=== PATIENT | female | born 1940 | race Caucasian/White ===

== ENCOUNTER 2018-08-20 15:41 | Inpatient (IN) | payer OTHER ==
--- NOTE | 2018-08-20 16:36 | RAD REPORT ---
EXAM DESCRIPTION: RAD - Chest Single View - 08/20/2018 4:30 pm CLINICAL HISTORY: SOB Chest pain. COMPARISON: No comparisons FINDINGS: Portable technique limits examination quality. Emphysematous changes are present throughout the lungs with several scattered granulomas present. The heart is normal in size. No displaced fractures.Aortic atherosclerosis. IMPRESSION: Prominent COPD.
[2018-08-20 16:42] LABS: Absolute Neutrophil 17.6 K/uL (1.8-8.0); Basophils % 0.2 % (0-1.3); Hematocrit 44.3 % (36.0-45.0); Lymphocytes % 9.5 % (15.3-44.8); MPV 14.2 fL (7.6-11.3)
--- NOTE | 2018-08-20 16:44 | RAD REPORT ---
EXAM DESCRIPTION: CT - Head Brain Wo Cont - 08/20/2018 4:35 pm CLINICAL HISTORY: AMS Headache, drowsiness COMPARISON: No comparisons TECHNIQUE: All CT scans are performed using dose optimization technique as appropriate and may inclu de automated exposure control or mA/KV adjustment according to patient size. FINDINGS: No intracranial hemorrhage, hydrocephalus or extra-axial fluid collection.Advanced general ized brain atrophy is present with advanced periventricular and deep white matter chronic microvascul ar ischemic changes.No areas of brain edema or evidence of midline shift. Extensive opacification of the visualized paranasal sinuses. The calvarium is intact. IMPRESSION: No acute intracranial abnormality. Extensive sinus disease is present.
[2018-08-20 16:45] LABS: Albumin 2.2 g/dL (3.4-5.0); Bilirubin Direct 0.1 mg/dL (0-0.2); Bilirubin Total 0.3 mg/dL (0.2-1.0); Potassium 3.3 mmol/L (3.5-5.1); Protein, Total 6.8 g/dL (6.4-8.2); Protime INR 1.16; Troponin (Emerg Dept Use Only) 0.02 ng/mL (0.0-0.045)
[2018-08-20] MEDS ORDERED: NA CHLORIDE 0.9% 500 ML ONE (17:40)
[2018-08-20 17:54] LABS: Platelet Estimate DECR; Platelets, Giant FEW PRESENT
[2018-08-20 17:55] LABS: Anisocytosis 1+; Blood Morphology Comment NOTED (NOT SEEN); Dohle Bodies PRESENT; Macrocytosis 1+; Toxic Granulation 1+
[2018-08-20 18:00] LABS: Potassium 3.5 mmol/L (3.5-5.1)
--- NOTE | 2018-08-20 18:17 | EDPHYS ---
Physician Documentation [facility] Name: Alanna Troy Age: 78 yrs Sex: Female : 1940 Arrival Date: 08/20/2018 Time: 15:51 Bed 3 Private MD: ED Physician Jorge Luis Guerra HPI: 08/21 19:43 This 78 yrs old Female presents to ER via EMS with complaints of Respiratory wa Distress. 19:43 The patient has shortness of breath at rest, that occurred at a group home or hi assisted living facility, and the patient has a history of COPD, dementia. non-verbal at baseline, EMS called to [place] for unresponsiveness. noted pt O2 sat 70% RA. 85% with NRBM. Given neb in routed with 96% O2 noted with neb. Pt non-verbal at base and unable to give history. Son at bedside, [id number], advises DNR. Will take evaluation and treatment but declines intubation and or cardiac resuscitative drugs. Onset: The symptoms/episode began/occurred today. Duration: The symptoms are continuous, and are steadily getting worse. The patient's shortness of breath has no apparent modifying factors. Associated signs and symptoms: The patient has no apparent associated signs or symptoms. Severity of symptoms: At their worst the symptoms were severe in the emergency department the symptoms have improved moderately. The patient has experienced similar episodes in the past, a few times. The patient has been recently seen by a physician: [place] doctor. as noted above. Historical: - Allergies: 08/20 16:24 No Known Allergies; ph - Home Meds: 16:24 hydroxyzine HCl 25 mg Oral tab 1 tab 4 times per day [Active]; memantine 10 mg oral tab ph 1 tab 2 times per day [Active]; Zoloft 100 mg Oral tab 1 tab once daily [Active]; - PMHx: 16:24 Dementia; Depression; Anxiety; UTI; ph - Immunization history:: Adult Immunizations up to date. - Social history:: Smoking status: Patient/guardian denies using tobacco, but has a distant history of tobacco abuse. - Ebola Screening: : No symptoms or risks identified at this time. - Family history:: not pertinent. - Hospitalizations: : No recent hospitalization is reported. - History obtained from: son, [place] record. EMS personnel. ROS: 08/21 19:48 MS/Extremity: Negative for injury and deformity. wa Unable to obtain ROS due to baseline dementia. Exam: 19:49 Neck: Trachea midline, no thyromegaly or masses palpated, and no cervical wa lymphadenopathy. Supple, full range of motion without nuchal rigidity, or vertebral point tenderness. No Meningismus. 19:49 Constitutional: The patient appears unresponsive to verbal commands. eyes closed. tachypneic 19:49 Head/face: Exam is negative for obvious evidence of injury or deformity, swelling, tenderness. 19:49 Eyes: eyes closed. no redness or swelling on direct visualization when held open. 19:49 ENT: dry oropharynx. 19:49 Neck: External neck: is normal, Trachea: is midline with no obvious abnormalities, ROM/movement: is normal. 19:49 Chest/axilla: Inspection: normal, Palpation: no acute changes. 19:49 Cardiovascular: Rate: normal, Rhythm: regular, Pulses: no pulse deficits are appreciated, Heart sounds: normal, Edema: is not appreciated, JVD: is not appreciated. 19:49 Respiratory: moderate respiratory distress is noted, Respirations: tachypnea, Breath sounds: coarse bilaterally, Respiratory rate: tachypneic 19:49 Abdomen/GI: Inspection: abdomen appears normal, Bowel sounds: normal, Palpation: soft, in all quadrants. 19:49 Back: normal spinal alignment noted. 19:49 Musculoskeletal/extremity: Extremities: no swelling or bruising. . 19:49 Skin: no decubiti. no rash or swelling. 19:49 Neuro: unresponsive to verbal commands. moves purposefully to noxious stimuli. Vital Signs: 08/20 15:55 BP 102 / 78; Pulse 75; Resp 26; Pulse Ox 89% on R/A; Weight 52.16 kg; ph 16:17 BP 112 / 70; Pulse 84; Resp 28; Pulse Ox 97% on BiPAP; ph 16:54 BP 124 / 66; Pulse 71; Resp 24; Pulse Ox 100% on BiPAP; ph 17:30 BP 126 / 62; Pulse 72; Resp 24; Pulse Ox 100% on 50% BiPAP; ph 18:04 BP 140 / 67; Pulse 69; Resp 24; Temp 99.1(R); Pulse Ox 100% on 50% BiPAP; ph 18:30 BP 147 / 78; Pulse 68; Resp 24; Pulse Ox 98% on 50% BiPAP; ph 19:30 BP 105 / 91; Pulse 79; Resp 20; Pulse Ox 100% ; ea 20:30 BP 153 / 74; Pulse 72; Resp 20; Pulse Ox 96% on BiPAP; ea 21:45 BP 111 / 50; Pulse 64; Resp 18; Temp 98.9(A); Pulse Ox 98% on BiPAP; ea MDM: 15:52 Patient medically screened. 08/21 19:55 Differential diagnosis: CHF exacerbation, Chronic Obstructive Pulmonary Disease hi Myocardial Infarction pneumonia, pulmonary edema, reactive airway disease, Sepsis Unstable Angina acute stroke. Data reviewed: vital signs, nurses notes. Test interpretation: by ED physician or midlevel provider: labs noted for hyperchloremic hypernatremia. elevated lactate. leucocytosis with 10 bandemia. low platelets. Head CT: no acute process. extensive sinus disease. CXR: COPD. 19:57 Test interpretation: by ED physician or midlevel provider: HR 78. ST depressions noted hi interior lateral leads. consider ischemia. Response to treatment: the patient's symptoms have mildly improved after treatment. Special discussion: discussed goals of care with family. Advised admit Dr. Braden. fluids started cognizant of the need to proceed with caution to prevent CPM. 20:00 Special discussion: placed on BIPAP for resp support as family decline intubation. hi Empirical abx coverage initiated. r/o sepsis. 08/20 16:00 Order name: Urine Culture 08/20 16:00 Order name: Basic Metabolic Panel; Complete Time: 17:25 08/20 16:00 Order name: Blood Culture Adult (2) 08/20 16:00 Order name: CBC with Diff; Complete Time: 18:11 08/20 16:00 Order name: CPK; Complete Time: 17:25 08/20 16:00 Order name: Lactate; Complete Time: 17:25 08/20 16:00 Order name: LFT's; Complete Time: 17:25 08/20 16:00 Order name: Lipase; Complete Time: 17:25 08/20 16:00 Order name: Procalcitonin; Complete Time: 17:25 08/20 16:00 Order name: Protime (+inr); Complete Time: 17:25 08/20 16:00 Order name: Ptt, Activated; Complete Time: 17:25 08/20 16:00 Order name: Troponin (emerg Dept Use Only); Complete Time: 17:08/20 16:00 Order name: Urine Microscopic Only; Complete Time: 19:40 hi 08/20 16:07 Order name: Flu; Complete Time: 17: hi 08/20 16:00 Order name: Chest Single View XRAY; Complete Time: 17: hi 08/20 16:00 Order name: Accucheck; Complete Time: 16: hi 08/20 16:00 Order name: Cardiac monitoring; Complete Time: 16: hi 08/20 16:00 Order name: CT Head Brain wo Cont; Complete Time: 17:25 hi 08/20 16:01 Order name: BIPAP hi 08/20 16:47 Order name: Manual Differential; Complete Time: 18:11 EDMS 08/20 16:51 Order name: Basic Metabolic Panel; Complete Time: 18:11 08/20 17:37 Order name: EKG Electrocardiogram EDMS 08/20 18:52 Order name: Urine Dipstick--Ancillary (enter results) 08/20 21:38 Order name: Urine Dipstick-Ancillary; Complete Time: 19:40 EDMS 08/20 21:50 Order name: Lactate Sepsis 2 HR Follow-up; Complete Time: 19:40 EDMS 08/20 16:00 Order name: EKG - Nurse/Tech; Complete Time: 17: hi 08/20 16:00 Order name: IV Saline Lock - Large Bore; Complete Time: 16:29 hi 08/20 16:00 Order name: Labs collected and sent; Complete Time: 16: hi 08/20 16:00 Order name: O2 Per Protocol; Complete Time: 16: hi 08/20 16:00 Order name: O2 Sat Monitoring; Complete Time: 16: hi 08/20 16:00 Order name: Urine Dipstick-Ancillary (obtain specimen); Complete Time: 16: hi 08/20 16:52 Order name: Straight Cath; Complete Time: 18:01 Administered Medications: 08/20 17:50 Drug: NS 0.9% 500 ml Route: IV; Rate: bolus; Site: left antecubital; ph 18:30 Follow up: Response: No adverse reaction; IV Status: Completed infusion ph 18:41 Drug: Versed 1 mg Route: IVP; Site: left antecubital; ph 19:27 Follow up: Response: No adverse reaction ph 19:05 Drug: Rocephin - (cefTRIAXone) 2 grams Route: IVPB; Infused Over: 30 mins; Site: left ea antecubital; 19:32 Follow up: Response: No adverse reaction; IV Status: Completed infusion; Medication ea administered IVP per protocol 19:26 Drug: Zithromax 500 mg Route: IVPB; Infused Over: 1 hrs; Site: left antecubital; ea 20:30 Follow up: Response: No adverse reaction; IV Status: Completed infusion; IV Intake: ea 250ml 19:30 Drug: Versed 2 mg Route: IVP; Site: left antecubital; ea 20:00 Follow up: Response: No adverse reaction ea Disposition: 08/21 19:59 Critical Care:. wa Disposition: 08/20/18 18:17 Hospitalization ordered by Ramon Braden for Inpatient Admission. Preliminary diagnosis are Acute Altered Mental Status, Hypernatremia, Hyperchloremia, Dehydration. - Bed requested for Intensive Care Unit. - Status is Inpatient Admission. ea - Condition is Critical. - Problem is new. - Symptoms have improved. UTI on Admission? Yes Critical care time excluding procedures: 19:59 Critical care time: Bedside Care: 15 minutes, Consultation: 10 minutes, Family wa Intervention: 10 minutes. Total time: 35 minutes Signatures: Dispatcher [employer] EDCally Fernández RN RN kl Ballard, Brenda, RN RN bb Williams, Irene, RN RN iw Hall, Patricia, RN RN ph Antunez, Elena, RN RN ea Appiah, William, MD MD wa Corrections: (The following items were deleted from the chart) 08/20 19:47 18:17 Hospitalization Ordered by Ramon Braden DO for Inpatient Admission. Preliminary marly diagnosis is Acute Altered Mental Status; Hypernatremia; Hyperchloremia; Dehydration. Bed requested for Telemetry/MedSurg (Inpatient). Status is Inpatient Admission. Condition is Critical. Problem is new. Symptoms have improved. UTI on Admission? Yes. gely 20:41 19:47 08/20/2018 18:17 Hospitalization Ordered by Ramon Braden DO for Inpatient bb Admission. Preliminary diagnosis is Acute Altered Mental Status; Hypernatremia; Hyperchloremia; Dehydration. Bed requested for Telemetry/MedSurg (Inpatient). Status is Inpatient Admission. Condition is Critical. Problem is new. Symptoms have improved. UTI on Admission? Yes. 22:55 20:41 08/20/2018 18:17 Hospitalization Ordered by Ramon Braden DO for Inpatient ea Admission. Preliminary diagnosis is Acute Altered Mental Status; Hypernatremia; Hyperchloremia; Dehydration. Bed requested for Intensive Care Unit. Status is Inpatient Admission. Condition is Critical. Problem is new. Symptoms have improved. UTI on Admission? Yes. bb
--- NOTE | 2018-08-20 18:17 | ER ---
Nurse's Notes [facility] Name: Alanna Troy Age: 78 yrs Sex: Female : 1940 Arrival Date: 08/20/2018 Time: 15:51 Bed 3 Private MD: Diagnosis: Acute Altered Mental Status;Hypernatremia;Hyperchloremia;Dehydration Presentation: 08/20 15:55 Presenting complaint: EMS states: Pt from [place], [place] [facility] staff reports finding ph pt unresponsive in bed, SPo2 in 70's on RA, 85% on NRB upon EMS arrivval, A\T\A adminsitered by EMS and Spo2 improved to 96% on neb mask, BP 120s/70s HR 90s, BGL 126, only hx is dementia and depression, pt nonverbal at baseline. 16:14 Transition of care: patient was received from another setting of care (long-term care facility), [place]. Onset of symptoms was August 20, 2018. Risk Assessment: Do you want to hurt yourself or someone else? Patient reports no desire to harm self or others. Initial Sepsis Screen: Does the patient meet any 2 criteria? Does the patient have a suspected source of infection? Yes: Productive cough/pneumonia Dysuria/Frequency/Urgency/UTI. Care prior to arrival: Medication(s) given: Albuterol Neb Atrovent Neb IV initiated. 20 GA, in the right forearm, Glucose check: 124 Med neb given. Oxygen administered. via a nebulizer mask, via a non-rebreather mask. 16:14 Method Of Arrival: EMS: [facility] 16:14 Acuity: JAYSON 2 ph Historical: - Allergies: 16:24 No Known Allergies; ph - Home Meds: 16:24 hydroxyzine HCl 25 mg Oral tab 1 tab 4 times per day [Active]; memantine 10 mg oral tab ph 1 tab 2 times per day [Active]; Zoloft 100 mg Oral tab 1 tab once daily [Active]; - PMHx: 16:24 Dementia; Depression; Anxiety; UTI; ph - Immunization history:: Adult Immunizations up to date. - Social history:: Smoking status: Patient/guardian denies using tobacco, but has a distant history of tobacco abuse. - Ebola Screening: : No symptoms or risks identified at this time. - Family history:: not pertinent. - Hospitalizations: : No recent hospitalization is reported. - History obtained from: son, [place] record. EMS personnel. Screenin:30 Abuse screen: Denies threats or abuse. Denies injuries from another. Nutritional ph screening: No deficits noted. Tuberculosis screening: No symptoms or risk factors identified. Fall Risk None identified. Assessment: 16:00 General: Appears in no apparent distress. uncomfortable, slender, Behavior is drowsy, ph quiet, restless. Pain: Unable to use pain scale. Patient is disoriented. Does not appear to understand pain scale. Patient appears agitated, to be grimacing. Neuro: Level of Consciousness is lethargic, listless, Oriented to none hx of dementia. Cardiovascular: Capillary refill is sluggish in bilateral fingers. Respiratory: Airway is patent Respiratory effort is even, labored, shallow, Respiratory pattern is tachypnea Breath sounds are coarse in mediastinum Breath sounds are diminished in left posterior lower lobe, right posterior middle lobe and right posterior lower lobe. GI: Abdomen is flat, non-distended, Bowel sounds present X 4 quads. : Parent/caregiver report the patient having recently dx w/ UTI. Derm: Skin is fragile, is thin, Skin is normal, Skin temperature is cool. Musculoskeletal: Circulation, motion, and sensation intact. 16:49 Reassessment: Patient appears in no apparent distress at this time. Patient and/or ph family updated on plan of care and expected duration. Pain level reassessed. Pt returned from CT, family at bedside. 18:00 Reassessment: Patient appears in no apparent distress at this time. No changes from ph previously documented assessment. Patient and/or family updated on plan of care and expected duration. Pain level reassessed. 19:05 General: Appears slender, Behavior is Responds to painful stimulus. Pain: Unable to use ea pain scale. FLACC scale score is 3 out of 10. Neuro: Level of Consciousness is Responds to painful stimulus. Oriented to none. Cardiovascular: Capillary refill is sluggish. Respiratory: Airway is patent Respiratory effort is even, shallow, Respiratory pattern is regular, Breath sounds are diminished bilaterally. GI: Abdomen is non-distended. Derm: Skin is fragile, is thin, Skin is dry, Skin is pale, Skin temperature is cool. 20:30 Reassessment: Patient and/or family updated on plan of care and expected duration. Pain ea level reassessed. Pt resting with eyes closed, repiration's even and unlabored. Remains on BiPAP, tolerating well. No s/s of pain or discomfort noted at this time. 21:01 Reassessment: No changes from previously documented assessment. Patient and/or family ea updated on plan of care and expected duration. Pain level reassessed. 22:02 Reassessment: Patient and/or family updated on plan of care and expected duration. Pain ea level reassessed. Pt resting with eyes closed, remains on BiPAP tolerating well. Respirations even and unlabored, chest expansion even and symmetrical. No s/s of pain or discomfort noted at this time. 22:53 Reassessment: No changes from previously documented assessment. Patient and/or family ea updated on plan of care and expected duration. Pain level reassessed. Pt admitted to ICU, pt taken via stretcher per nurse, with non re breather in place, accompanied by respiratory. Pt tolerating well. Vital Signs: 15:55 BP 102 / 78; Pulse 75; Resp 26; Pulse Ox 89% on R/A; Weight 52.16 kg; ph 16:17 BP 112 / 70; Pulse 84; Resp 28; Pulse Ox 97% on BiPAP; ph 16:54 BP 124 / 66; Pulse 71; Resp 24; Pulse Ox 100% on BiPAP; ph 17:30 BP 126 / 62; Pulse 72; Resp 24; Pulse Ox 100% on 50% BiPAP; ph 18:04 BP 140 / 67; Pulse 69; Resp 24; Temp 99.1(R); Pulse Ox 100% on 50% BiPAP; ph 18:30 BP 147 / 78; Pulse 68; Resp 24; Pulse Ox 98% on 50% BiPAP; ph 19:30 BP 105 / 91; Pulse 79; Resp 20; Pulse Ox 100% ; ea 20:30 BP 153 / 74; Pulse 72; Resp 20; Pulse Ox 96% on BiPAP; ea 21:45 BP 111 / 50; Pulse 64; Resp 18; Temp 98.9(A); Pulse Ox 98% on BiPAP; ea ED Course: 15:51 Patient arrived in ED. iw 15:52 Jorge Luis Guerra MD is Attending Physician. wa 15:58 Laly Tyler RN is Primary Nurse. ph 16:08 EKG done, by technology adoption manager. reviewed by Jorge Luis Guerra MD. sm3 16:11 Flu and/or RSV swab sent to lab. iw 16:15 Maintain EMS IV. Dressing intact. Good blood return noted. Site clean \T\ dry. Gauge \T\ ph site: 20 LAC. 16:16 Triage completed. ph 16:[address] vm2 16:24 Arm band placed on. ph 16:31 Chest Single View XRAY In Process Unspecified. EDMS 16:35 CT Head Brain wo Cont In Process Unspecified. EDMS 16:41 CT completed. Patient tolerated procedure well. Patient moved back from CT. vm2 16:48 Patient has correct armband on for positive identification. Bed in low position. Call ph light in reach. Side rails up X 1. gas derrick operator on. Pulse ox on. NIBP on. Warm blanket given. 17:50 Straight cath inserted, using sterile technique, 16 Fr. 26 Fr. Returned nida urine. ph Patient tolerated well. 18:05 Patient admitted, IV remains in place. ph 18:15 Ramon Braden DO is Hospitalizing Provider. wa 20:57 No provider procedures requiring assistance completed. ea Administered Medications: 17:50 Drug: NS 0.9% 500 ml Route: IV; Rate: bolus; Site: left antecubital; ph 18:30 Follow up: Response: No adverse reaction; IV Status: Completed infusion ph 18:41 Drug: Versed 1 mg Route: IVP; Site: left antecubital; ph 19:27 Follow up: Response: No adverse reaction ph 19:05 Drug: Rocephin - (cefTRIAXone) 2 grams Route: IVPB; Infused Over: 30 mins; Site: left ea antecubital; 19:32 Follow up: Response: No adverse reaction; IV Status: Completed infusion; Medication ea administered IVP per protocol 19:26 Drug: Zithromax 500 mg Route: IVPB; Infused Over: 1 hrs; Site: left antecubital; ea 20:30 Follow up: Response: No adverse reaction; IV Status: Completed infusion; IV Intake: ea 250ml 19:30 Drug: Versed 2 mg Route: IVP; Site: left antecubital; ea 20:00 Follow up: Response: No adverse reaction ea Intake: 20:30 IV: 250ml; Total: 250ml. ea Outcome: 18:17 Decision to Hospitalize by Provider. wa 19:35 Instructed on Family instructed on need for admit, verbalized the understanding of ea instructions 22:53 Admitted to ICU accompanied by nurse, via stretcher, room 7, with oxygen, on monitor, ea with chart, Report called to Receiving ICU nurse 22:53 Condition: stable 22:55 Patient left the ED. ea Signatures: Dispatcher [employer] Amina Cadena RN RN iw Hall, Patricia, RN RN Dori Baltazar [facility] Alicia Guerra RN RN ea Appiah, William, MD MD wa Montes, Shakira 3 Corrections: (The following items were deleted from the chart) 16:12 16:06 Presenting complaint: ph ph
[2018-08-20 18:31] LABS: Urine Bacteria 20-50 /HPF (<20); Urine Culture Reflex Order NOT NEEDED; Urine RBC NONE SEEN /HPF (NONE SEEN)
[2018-08-20] MEDS ORDERED: AZITHROMYCIN 500 MG/250 ML BAG ONE (18:49)
[2018-08-20] MEDS ORDERED: MIDAZOLAM HCL 2 MG/2 ML INJ ONE ×2 (18:49→19:33)
[2018-08-20] MEDS ORDERED: CEFTRIAXONE/SWI 2gm 2 GM/20 ML SYR IVP ONE (19:00)
[2018-08-20] MEDS ORDERED: CEFTRIAXONE/SWI 1gm 2 GM/20 ML SYR ONE (19:21)
--- NOTE | 2018-08-20 19:53 | P.HP ---
Certification for Inpatient Patient admitted to: Inpatient With expected LOS: >2 Midnights Practitioner: I am a practitioner with admitting privileges, knowledge of patient current condition, hospital course, and medical plan of care. Services: Services provided to patient in accordance with Admission requirements found in Title 42 Section 412.3 of the Code of Federal Regulations Patient History Date of Service: 08/20/18 Reason for admission: acute encephalopathy History of Present Illness: Ms Troy is a 78 years old woman with history of COPD, Dementia and anxiety, who is [facility], she was diagnosed with UTI 4 days ago and was started on oral antibiotics. Today, [place] staff found the patient unresponsive. There are no history of fever, chills, more cough than usual or chest pain. O2 sat was 70,s on RA, when EMS arrived she was placed on NRB mask and O2 sat increased to 85%. At arrival her temp was 99.1F, blood pressure on the lower side 102/78. Lab work shows luekocytosis 20.0 K with bandemia 10%. Lactate elevated, normal procalcitonin. Sodium level was significantly elevated 185 mmol/L. CXR shows extensive COPD. Influenza screening is negative. Head CT shows no acute abnormalities. Home medications list reviewed: Yes - Past Medical/Surgical History -: Dementia -: COPD -: anxiety Past Surgical History: Reviewed- Non-Contributory - Family History Family History: Reviewed- Non-Contributory - Social History Smoking Status: Former smoker Alcohol use: No CD- Drugs: No Place of Residence: Home Review of Systems 10-point ROS is otherwise unremarkable Physical Examination - Physical Exam General: Alert, In no apparent distress HEENT: Atraumatic, PERRLA, Mucous membr. moist/pink, EOMI, Sclerae nonicteric Neck: Supple, 2+ carotid pulse no bruit, No LAD, Without JVD or thyroid abnormality Respiratory: Diminished Cardiovascular: Regular rate/rhythm, Normal S1 S2 Gastrointestinal: Normal bowel sounds, No tenderness Musculoskeletal: No tenderness Integumentary: No rashes Neurological: Normal strength at 5/5 x4 extr, Normal tone, Dementia Lymphatics: No axilla or inguinal lymphadenopathy - Studies Laboratory Data (last 24 hrs) 08/20/18 17:20: Sodium 186 H*, Potassium 3.5, BUN 64 H, Creatinine 1.37 H, Glucose 119 H 08/20/18 16:09: PT 13.7 H, INR 1.16, APTT 23.4 L 08/20/18 16:09: WBC 20.7 H*, Hgb 13.8, Hct 44.3, Plt Count 120 L 08/20/18 16:09: Sodium 185 H*, Potassium 3.3 L, BUN 65 H, Creatinine 1.36 H, Glucose 123 H, Total Bilirubin 0.3, AST 21, ALT 20, Alkaline Phosphatase 77, Lipase 78 Microbiology Data (last 24 hrs): 08/20/18 16:10 Nasopharnyx Influenza Type A Antigen Screen - Final 08/20/18 16:10 Nasopharnyx Influenza Type B Antigen Screen - Final Assessment and Plan - Problems (Diagnosis) (1) Acute encephalopathy Current Visit: Yes Status: Acute (2) Hypernatremia Current Visit: Yes Status: Acute (3) Volume depletion Current Visit: Yes Status: Acute (4) COPD exacerbation Current Visit: Yes Status: Acute - Plan The patient will be admitted to the hospital due to acute encephalopathy. Etiology is multifactorial including volume depletion, possible COPD exacerbation, hypernatremia. Nephrology team is on board and have already made recommendations on fluid replacement. Will continue empiric antibiotic therapy, also continue BiPAP. Blood cultures in process. - Advance Directives Does patient have a Living Will: No Does patient have a Durable POA for Healthcare: No - Code Status/Comfort Care Code Status Assessed: Yes Code Status: Do Not Resuscitate
[2018-08-20 21:37] LABS: Urine Blood NEGATIVE (NEG); Urine Glucose NEGATIVE (NEG); Urine Protein 1+ (NEG); Urine Specific Gravity 1.025 (1.005-1.030)
[2018-08-20] MEDS ORDERED: ACETAMINOPHEN 650MG/RECT SUPP RECT PRN (23:05)
[2018-08-20] MEDS ORDERED: NA CHLORIDE 0.9% 1,000 ML IV SCH (23:05)
[2018-08-20] MEDS ORDERED: ACETAMINOPHEN 500 MG TAB PO PRN (23:05)
[2018-08-20] MEDS: ARFORMOTEROL TARTRATE 15 MCG/2 ML VIAL.NEB NEB SCH (23:05)
[2018-08-20] MEDS ORDERED: ALBUTEROL 2.5 MG/3 ML NEB SOL NEB PRN (23:05)
[2018-08-20] MEDS ORDERED: ONDANSETRON 4 MG/2 ML VIAL IV PRN (23:05)
[2018-08-21 00:10] LABS: Potassium 3.5 mmol/L (3.5-5.1); Thyroid Stimulating Hormone 1.53 uIU/mL (0.360-3.740)
[2018-08-21] MEDS ORDERED: KCL 20 MEQ/100 mL IVPB 20 MEQ/100 ML BAG IV SCH ×2 (01:00→21:00)
[2018-08-21] MEDS: METHYLPREDNISOLONE 40 MG INJ IV SCH ×3 (01:25→16:40)
[2018-08-21] MEDS: ENOXAPARIN 30 MG/0.3 ML SQ SCH ×2 (01:25→08:18)
[2018-08-21] MEDS ORDERED: NACHLORIDE 0.45% 1,000 ML IV SCH (02:00)
[2018-08-21 06:09] LABS: Absolute Lymphocytes (CBC) 1.7 K/uL (0.7-4.9); Absolute Monocytes 0.7 K/uL (0.1-1.3); Basophils % 0.1 % (0-1.3); Hematocrit 39.5 % (36.0-45.0); Lymphocytes % 8.9 % (15.3-44.8); MPV 14.2 fL (7.6-11.3); Monocytes % 3.4 % (3.3-12.3); RBC Red Blood Cell Count 3.65 M/uL (3.86-4.86)
--- NOTE | 2018-08-21 06:22 | EKG ---
Test Date: 2018-08-20 Test Time: 15:44:17 [employer]ide [employer] Commanding Officer: PATRICIA MEASUREMENT RESULTS: Intervals: Rate: 78 HI: 116 QRSD: 72 QT: 370 QTc: 421 Wallace: P: 98 HI: 116 QRS: 5 T: 103 INTERPRETIVE STATEMENTS: Normal sinus rhythm Nonspecific ST and T wave abnormality Abnormal ECG No previous ECG available for comparison Electronically Signed On 08-21-18 06:18:28 CASE PICKER by Samson Redding
[2018-08-21 06:46] LABS: Magnesium 2.8 mg/dL (1.8-2.4); Potassium 3.9 mmol/L (3.5-5.1)
[2018-08-21] MEDS: ARFORMOTEROL TARTRATE 15 MCG/2 ML VIAL.NEB NEB SCH ×2 (08:17→19:44)
[2018-08-21] MEDS: CEFTRIAXONE/SWI 1gm 1 GM/10 ML SYR IV SCH (08:19)
--- NOTE | 2018-08-21 08:41 | RAD REPORT ---
EXAM DESCRIPTION: Vivek Single View08/21/2018 6:26 am CLINICAL HISTORY: Chest pain COMPARISON: August 20 FINDINGS: The lungs remain hyperaerated. The lungs appear clear of acute infiltrate. The heart is normal size IMPRESSION: No acute abnormalities displayed
--- NOTE | 2018-08-21 08:53 | RAD REPORT ---
EXAM DESCRIPTION: RAD - Femur Right - 08/21/2018 8:11 am CLINICAL HISTORY: Right hip pain FINDINGS: No fracture is seen. The bones are osteoporotic
--- NOTE | 2018-08-21 08:54 | RAD REPORT ---
EXAM DESCRIPTION: RAD - Hip Right 2 View - 08/21/2018 8:11 am CLINICAL HISTORY: Right hip pain FINDINGS: No fracture or dislocation is seen. The bones are osteoporotic. If patient continues have symptoms to suggest an occult fracture then MRI would be recommended
[2018-08-21] MEDS ORDERED: CEFTRIAXONE 1 GM/NS 50 ML 1 GM/50 ML BAG IV SCH (09:00)
[2018-08-21] MEDS ORDERED: AZITHROMYCIN IV 500 MG in NA CHLORIDE 0.9% 250 ML IVPB SCH (09:00)
--- NOTE | 2018-08-21 12:15 | P.CNS ---
Date of Consult: 08/21/18 Chief Complaint: acute encephalopathy History of Present Illness: Patient is 78 years of age with end-stage dementia and COPD senior care resident was diagnosed with a urinary tract infection started on antibiotics found unresponsive hypoxic as placed on a non-rebreather transferred here to the ICU the she was found to have evidence of sepsis. Patient is agitated nonverbal on BiPAP patient also has a diffuse maculopapular rash Allergies No Known Allergies Allergy (Unverified 08/20/18 20:37) Home Medications: Memantine HCl 10 mg PO BID 08/21/18 Sertraline [Zoloft*] 100 mg PO DAILY 08/21/18 hydrOXYzine HCl [Atarax] 25 mg PO Q6HP PRN 08/21/18 - Past Medical/Surgical History Diabetic: No -: Dementia -: COPD -: anxiety - Social History Smoking Status: Former smoker Alcohol use: No CD- Drugs: No Caffeine use: Yes Place of Residence: Home Review of Systems is unable to be obtained Physical Examination Temp Pulse Resp BP Pulse Ox 98.3 F 65 17 129/57 L 93 08/21/18 04:00 08/21/18 06:00 08/21/18 06:00 08/21/18 06:00 08/21/18 04:00 General: Moderate distress Neck: Supple Respiratory: Clear to auscultation bilaterally, Diminished Cardiovascular: No edema, Regular rate/rhythm Gastrointestinal: Normal bowel sounds, Soft and benign Integumentary: Rash(es) (Diffuse macular papular rash) Laboratory Data (last 24 hrs) 08/20/18 17:20: Sodium 186 H*, Potassium 3.5, BUN 64 H, Creatinine 1.37 H, Glucose 119 H 08/20/18 16:09: PT 13.7 H, INR 1.16, APTT 23.4 L 08/20/18 16:09: WBC 20.7 H*, Hgb 13.8, Hct 44.3, Plt Count 120 L 08/20/18 16:09: Sodium 185 H*, Potassium 3.3 L, BUN 65 H, Creatinine 1.36 H, Glucose 123 H, Total Bilirubin 0.3, AST 21, ALT 20, Alkaline Phosphatase 77, Lipase 78 - Problems (1) Respiratory failure Current Visit: Yes Status: Resolved Plan: Patient is 78 years of age with end-stage dementia COPD admitted with altered mental status patient is very hypernatremic elevated white count agree with D5 water recheck her chemistries tsh is normal Dc Zithromax continue with Rocephin cultures are pending urinalysis negative Qualifiers: Chronicity: acute (2) Hypernatremia Onset Date: 08/21/18 Current Visit: Yes Status: Acute Plan: Patient has severe hypernatremia change to D5 water thyroid function tests is normal monitor chemistries every 4 hr (3) Rash and nonspecific skin eruption Current Visit: Yes Status: Acute (4) Rash and nonspecific skin eruption Current Visit: Yes Status: Acute Plan: Patient has a nonspecific rash not itching was present on admission diffuse
[2018-08-21] MEDS ORDERED: D5W 1,000 ML IV SCH (12:16)
--- NOTE | 2018-08-21 12:30 | P.PN ---
Subjective Date of Service: 08/21/18 Primary Care Provider: [facility] Chief Complaint: acute encephalopathy Subjective: Demented, Other (Patient less agitated today. Currently on BiPAP.) Physical Examination - Vital Signs Temperature: 98.3 F Blood Pressure: 129/57 Pulse: 65 Respirations: 17 Pulse Ox (%): 93 - Physical Exam General: Alert, Demented, Other (On BiPAP) HEENT: Atraumatic Neck: Supple Respiratory: Diminished (Bilateral) Cardiovascular: Normal pulses, Regular rate/rhythm Gastrointestinal: Normal bowel sounds, Soft and benign, Non-distended, No masses , No rebound, No guarding Musculoskeletal: No tenderness, No warmth Integumentary: No warmth, No cyanosis Neurological: Normal strength at 5/5 x4 extr, Dementia - Studies Laboratory Data (last 24 hrs) 08/20/18 17:20: Sodium 186 H*, Potassium 3.5, BUN 64 H, Creatinine 1.37 H, Glucose 119 H 08/20/18 16:09: PT 13.7 H, INR 1.16, APTT 23.4 L 08/20/18 16:09: WBC 20.7 H*, Hgb 13.8, Hct 44.3, Plt Count 120 L 08/20/18 16:09: Sodium 185 H*, Potassium 3.3 L, BUN 65 H, Creatinine 1.36 H, Glucose 123 H, Total Bilirubin 0.3, AST 21, ALT 20, Alkaline Phosphatase 77, Lipase 78 Microbiology Data (last 24 hrs): 08/20/18 16:09 Blood - Blood Anaerobic Blood Culture - Final 08/20/18 16:10 Nasopharnyx Influenza Type A Antigen Screen - Final 08/20/18 16:10 Nasopharnyx Influenza Type B Antigen Screen - Final Medications List Reviewed: Yes Assessment & Plan Discharge Plan: [facility] Plan to discharge in: Greater than 2 days Physician Review Additional Text: Impression: Toxic encephalopathy secondary to acute on chronic respiratory failure with underlying COPD exacerbation, acute on chronic renal disease with severe hypernatremia and UTI Alzheimer's dementia Moderate malnutrition Thrombocytopenia Plan: Toxic encephalopathy secondary to acute on chronic respiratory failure with underlying COPD exacerbation, acute on chronic renal disease with severe hypernatremia and UTI: Case discussed with pulmonology and nephrology. Continue with COPD medication along with antibiotic therapy. Nephrology to adjust IV fluids. Case discussed with son. Patient is DNR. Also discuss with son about the possibility of hospice if her condition does not improve. Other family members to come tomorrow. Will continue to monitor closely. Continue plan of care. Alzheimer's dementia: Restart home medication. Depression: Continue medication Moderate malnutrition: Once the patient is more alert. Will need to determine nutritional status. Thrombocytopenia: Likely from UTI. Will monitor closely. Time Spent Managing Pts Care (In Minutes): 55
[2018-08-21 13:11] LABS: Blood Gas Oxyhemoglobin 91.4 % (94-97); Blood O2 Saturation 93.1 % (92-98.5)
[2018-08-21 13:15] LABS: Protime INR 1.33
[2018-08-21 13:28] LABS: Anisocytosis 1+; Blood Morphology Comment NOTED (NOT SEEN); Macrocytosis 1+; Platelet Estimate DECR
[2018-08-21 13:29] LABS: Target Cells 1+
[2018-08-21] MEDS: LORazepam 2 MG/ML VIAL IV PRN (14:26)
[2018-08-21 14:32] LABS: Potassium 3.8 mmol/L (3.5-5.1)
[2018-08-21] MEDS: HALOPERIDOL LACT 5 MG/ML INJ IV PRN (17:19)
[2018-08-21 20:16] LABS: Potassium 3.4 mmol/L (3.5-5.1)
[2018-08-21] MEDS: JUVEN PACKET PO SCH (20:16)
[2018-08-21] MEDS: MEMANTINE HCL 10 MG TABLET PO SCH (20:16)
[2018-08-21] MEDS: ENSURE ENLIVE 237 ML CAN PO SCH (20:16)
[2018-08-21] MEDS: D5W 1,000 ML IV SCH (20:59)
--- NOTE | 2018-08-21 23:47 | P.CNS ---
Date of Consult: 08/22/18 Reason for Consult: Hypernatremia and CAPRI Primary Care Provider: [facility] patient Chief Complaint: acute encephalopathy History of Present Illness: Pt is unable to provide HX , HX obtained from chart A 78 years old woman NH resident with history of COPD, Dementia and anxiety. Pt was sent for AMS Pt was diagnosed with UTI 4 days ago and was started on oral antibiotics. Pt was found unresponsive and Hypoxic , in ER Lab work shows luekocytosis 20.0 K with bandemia 10%. Lactate elevated, normal procalcitonin. Sodium level was significantly elevated 185 mmol/L. CXR shows extensive COPD. Influenza screening is negative. Head CT shows no acute abnormalities. Allergies No Known Allergies Allergy (Unverified 08/20/18 20:37) Home Medications: Memantine HCl 10 mg PO BID 08/21/18 Sertraline [Zoloft*] 100 mg PO DAILY 08/21/18 hydrOXYzine HCl [Atarax] 25 mg PO Q6HP PRN 08/21/18 - Past Medical/Surgical History Diabetic: No -: Dementia -: COPD -: anxiety - Social History Smoking Status: Former smoker Alcohol use: No CD- Drugs: No Caffeine use: Yes Place of Residence: Home Physical Examination Temp Pulse Resp BP Pulse Ox 97.2 F 51 17 118/50 L 93 08/21/18 16:00 08/21/18 19:00 08/21/18 19:00 08/21/18 19:00 08/21/18 19:00 General: Moderate distress, Other (Lethargic , arousable to verbal stimuli ) HEENT: Atraumatic Neck: Supple, Without JVD or thyroid abnormality Respiratory: Clear to auscultation bilaterally Cardiovascular: No edema, Regular rate/rhythm, Normal S1 S2 Gastrointestinal: Normal bowel sounds, Soft and benign - Problems (1) Hypernatremia Onset Date: 08/21/18 Current Visit: Yes Status: Acute (2) Volume depletion Onset Date: 08/21/18 Current Visit: Yes Status: Acute Conclusions/Impression: Hypernatremia Due to dehydration , pt didnt respond to NS or 1/2 NS will switch fluid to D5w Rpt labs after 6 hrs will order urine Osmol and NA goal of correction 10-12meq/24hrs UTI Cont ABx Sepsis pro sascha -ve Bandemia with leuckocytosis F/U cultures and cont Abx Hypoxemic resp failure on BiPAP
[2018-08-22] MEDS: METHYLPREDNISOLONE 40 MG INJ IV SCH ×2 (00:50→08:40)
[2018-08-22] MEDS: LORazepam 2 MG/ML VIAL IV PRN (01:29)
[2018-08-22] MEDS: D5W 1,000 ML IV SCH ×2 (01:56→12:07)
[2018-08-22 06:05] LABS: Absolute Lymphocytes (CBC) 1.7 K/uL (0.7-4.9); Absolute Monocytes 0.7 K/uL (0.1-1.3); Absolute Neutrophil 20.6 K/uL (1.8-8.0); Basophils % 0.2 % (0-1.3); Hematocrit 37.8 % (36.0-45.0); Lymphocytes % 7.4 % (15.3-44.8); MPV 13.8 fL (7.6-11.3); Monocytes % 3.1 % (3.3-12.3); RBC Red Blood Cell Count 3.48 M/uL (3.86-4.86)
[2018-08-22 06:24] LABS: Magnesium 2.8 mg/dL (1.8-2.4); Potassium 3.9 mmol/L (3.5-5.1)
[2018-08-22] MEDS: ARFORMOTEROL TARTRATE 15 MCG/2 ML VIAL.NEB NEB SCH ×3 (08:00→21:01)
[2018-08-22] MEDS: SERTRALINE HCL 100 MG TAB PO SCH (08:40)
[2018-08-22] MEDS: CEFTRIAXONE/SWI 1gm 1 GM/10 ML SYR IV SCH (08:40)
[2018-08-22] MEDS: MEMANTINE HCL 10 MG TABLET PO SCH (08:40)
[2018-08-22] MEDS: ENSURE ENLIVE 237 ML CAN PO SCH ×2 (08:41→19:58)
[2018-08-22] MEDS: ENOXAPARIN 30 MG/0.3 ML SQ SCH (08:41)
[2018-08-22] MEDS: JUVEN PACKET PO SCH ×2 (08:41→19:58)
[2018-08-22] MEDS ORDERED: ENOXAPARIN 30 MG/0.3 ML SQ SCH (09:14)
--- NOTE | 2018-08-22 09:18 | P.PN ---
Subjective Date of Service: 08/22/18 Primary Care Provider: [facility] patient Chief Complaint: acute encephalopathy Subjective: Demented (Slight improvement noted) Physical Examination - Vital Signs Temperature: 98.2 F Blood Pressure: 146/62 Pulse: 60 Respirations: 22 Pulse Ox (%): 100 - Physical Exam General: Alert, Demented HEENT: Atraumatic Neck: Supple Respiratory: Expiratory wheezes (Bilateral) Cardiovascular: Normal pulses, Regular rate/rhythm Gastrointestinal: Normal bowel sounds, Soft and benign, Non-distended Musculoskeletal: No tenderness, No warmth Integumentary: No erythema, No warmth, No cyanosis Neurological: Dementia - Studies Microbiology Data (last 24 hrs): 08/20/18 16:09 Blood - Blood Anaerobic Blood Culture - Final Medications List Reviewed: Yes Assessment & Plan Discharge Plan: Half-Way Plan to discharge in: Greater than 2 days Physician Review Additional Text: Impression: Toxic encephalopathy secondary to acute on chronic respiratory failure with underlying COPD exacerbation, acute on chronic renal disease with severe hypernatremia and UTI Alzheimer's dementia Moderate malnutrition Thrombocytopenia Plan: Toxic encephalopathy secondary to acute on chronic respiratory failure with underlying COPD exacerbation, acute on chronic renal disease with severe hypernatremia and UTI: Continue with IV antibiotic therapy and COPD medication. Patient on BiPAP. Continue to wean off. Nephrology continues to adjust IV fluids. Sodium level improved. Will continue to monitor the patient closely. Patient with suspected cramping likely from dehydration. Continue with IV fluids. Will discuss with nephrology and pulmonology in detail. Will have nurses evaluate oral intake. May need to consider Dobbhoff for nutrition. Case discussed with son. Patient remains DNR. Discuss case with son about the possibility of hospice if her condition does not improve. Other family members to come and decide on this further. Also discussion revolved around oral intake. PEG tube if with significant dysphagia versus hospice. Will readdress this in detail with family. Alzheimer's dementia: Restart home medication. Continue to monitor closely. Depression: Continue medication Moderate malnutrition: Once the patient is more alert will need to determine oral intake status. If was significant dysphagia will need to discuss with family about the possibility of PEG tube versus hospice. Patient may require Dobhoff for nutrition. But with her severe dementia ashy may pull this out. Will discuss options with family. Will monitor closely. Thrombocytopenia: Likely related to above. Will monitor closely. Will hold Lovenox if platelet level less than 75. Will monitor closely. Peripheral smear obtained. Will discuss with pulmonology and nephrology. Time Spent Managing Pts Care (In Minutes): 55
--- NOTE | 2018-08-22 11:05 | P.PN ---
Subjective Date of Service: 08/25/18 Primary Care Provider: longterm patient Chief Complaint: Hypernatremia Subjective: Improving (Patient is improving sodium declining she did eat something today covered does not respond recently had an Ativan dose) Review of Systems is unable to be obtained Physical Examination - Vital Signs Temperature: 98.2 F Blood Pressure: 146/62 Pulse: 60 Respirations: 22 Pulse Ox (%): 100 - Physical Exam General: Unresponsive Neck: Supple Respiratory: Clear to auscultation bilaterally Integumentary: Rash(es) (Diffuse macular papular rash) - Studies Microbiology Data (last 24 hrs): 08/20/18 16:09 Blood - Blood Anaerobic Blood Culture - Final Medications List Reviewed: Yes Assessment & Plan - Problems (Diagnosis) (1) Hypernatremia Onset Date: 08/21/18 Current Visit: Yes Status: Acute Plan: Patient's main problem is hypernatremia cultures negative white count elevated Dc steroids Dc Ativan I have added thymine continue with IV fluids urinalysis negative patient is slowly improving (2) Rash and nonspecific skin eruption Current Visit: Yes Status: Acute Plan: Patient has a nonspecific rash not itching was present on admission diffuse
[2018-08-22 11:53] LABS: Potassium 3.5 mmol/L (3.5-5.1)
[2018-08-22] MEDS: THIAMINE 200 MG/2 ML INJ IVP SCH (12:07)
[2018-08-22] MEDS: HALOPERIDOL LACT 5 MG/ML INJ IV PRN ×2 (12:41→19:59)
[2018-08-22] MEDS: NACHLORIDE 0.45% 1,000 ML IV SCH ×2 (13:22→21:27)
[2018-08-22 18:07] LABS: Potassium 3.7 mmol/L (3.5-5.1)
--- NOTE | 2018-08-22 20:32 | RAD REPORT ---
EXAM DESCRIPTION: US - Renal Ultrasound-Complete - 08/22/2018 8:08 pm CLINICAL HISTORY: . Acute renal insufficiency COMPARISON: None. FINDINGS: The right kidney measures 9 cm with a normal echotexture. The left kidney measures 9 cm with a normal echotexture. 1 centimeter echogenic structure is present within the left kidney. Small left renal cyst is suspected Hydronephrosis is not seen. No gross abnormality of bladder is noted IMPRESSION: 1 centimeter echogenic structure within the left kidney may represent a calculus, fat or mass such as an angiomyolipoma. X-ray of the abdomen is recommended for further evaluation
[2018-08-22] MEDS: IPRATROPIUM BROM 0.5MG/2.5ML NEB PRN (21:01)
[2018-08-23] MEDS: HALOPERIDOL LACT 5 MG/ML INJ IV PRN (00:37)
[2018-08-23 05:27] VITALS: BMI 18.2
[2018-08-23 06:05] LABS: Absolute Lymphocytes (CBC) 2.2 K/uL (0.7-4.9); Absolute Monocytes 0.7 K/uL (0.1-1.3); Absolute Neutrophil 20.1 K/uL (1.8-8.0); Basophils % 0.1 % (0-1.3); Hematocrit 33.2 % (36.0-45.0); Lymphocytes % 9.7 % (15.3-44.8); MPV 13.7 fL (7.6-11.3)
[2018-08-23 06:53] LABS: Platelet Estimate DECR
[2018-08-23 06:54] LABS: Blood Morphology Comment NOTED (NOT SEEN); Macrocytosis 1+; Platelets, Giant PRESENT
[2018-08-23 06:56] LABS: Magnesium 2.6 mg/dL (1.8-2.4); Potassium 3.4 mmol/L (3.5-5.1)
[2018-08-23] MEDS: CEFTRIAXONE/SWI 1gm 1 GM/10 ML SYR IV SCH (08:20)
[2018-08-23] MEDS: THIAMINE 200 MG/2 ML INJ IVP SCH (08:20)
[2018-08-23] MEDS: SERTRALINE HCL 100 MG TAB PO SCH (08:20)
[2018-08-23] MEDS: ENOXAPARIN 30 MG/0.3 ML SQ SCH (08:21)
[2018-08-23] MEDS: ENSURE ENLIVE 237 ML CAN PO SCH ×2 (08:23→21:45)
[2018-08-23] MEDS: JUVEN PACKET PO SCH ×2 (08:23→21:45)
[2018-08-23] MEDS: NACHLORIDE 0.45% 1,000 ML IV SCH (08:26)
[2018-08-23] MEDS: ARFORMOTEROL TARTRATE 15 MCG/2 ML VIAL.NEB NEB SCH ×2 (08:39→20:00)
[2018-08-23] MEDS ORDERED: ENOXAPARIN 40 MG/0.4 ML SQ SCH (09:00)
[2018-08-23] MEDS ORDERED: D5W 1,000 ML IV SCH (09:00)
--- NOTE | 2018-08-23 09:43 | P.PN ---
Subjective Date of Service: 08/23/18 Primary Care Provider: custodial patient Chief Complaint: Hypernatremia Subjective: Demented, Other (Patient appears improved. Patient now on nasal cannula. Patient more alert.) Physical Examination - Vital Signs Temperature: 97.6 F Blood Pressure: 114/45 Pulse: 64 Respirations: 24 Pulse Ox (%): 93 - Physical Exam General: Alert, Demented HEENT: Atraumatic Neck: Supple Respiratory: Expiratory wheezes, Inspiratory wheezes Cardiovascular: Normal pulses, Regular rate/rhythm Gastrointestinal: Normal bowel sounds, Soft and benign, Non-distended, No tenderness, No masses, No rebound, No guarding Musculoskeletal: No erythema, No tenderness, No warmth Integumentary: No tenderness/swelling, No erythema, No warmth, No cyanosis Neurological: Normal speech, Normal strength at 5/5 x4 extr, Normal tone, Dementia - Studies Microbiology Data (last 24 hrs): 08/20/18 17:53 Catheterized Urine [place] Count - Final 08/20/18 17:53 Catheterized Urine - Final Medications List Reviewed: Yes Assessment & Plan Discharge Plan: [facility] Care Plan to discharge in: Greater than 2 days Physician Review Additional Text: Impression: Toxic encephalopathy secondary to acute on chronic respiratory failure with underlying COPD exacerbation, acute on chronic renal disease with severe hypernatremia and UTI Alzheimer's dementia Moderate malnutrition Thrombocytopenia Plan: Toxic encephalopathy secondary to acute on chronic respiratory failure with underlying COPD exacerbation, acute on chronic renal disease with severe hypernatremia and UTI: Continue with IV antibiotic therapy and COPD medication. Patient now off BiPAP and continues on nasal cannula. Will recheck x-ray today. Nephrology adjusting IV fluids. Sodium level improved. Overall mentation improved. Now more alert. Patient with advanced dementia. Nurses report that she is eating food. Will need to monitor her nutritional intake. Will discuss with family about the possibility of hospice at discharge. Patient remains in ICU due to hypernatremia. I will turn the service over to Dr. Bauer tomorrow. I will go up of her. Alzheimer's dementia: Continue with her medication. Will provide medication for agitation. Depression: Continue her medication Moderate malnutrition: Nurses report that she is eating due to increased alertness. Will continue to monitor her nutritional status. Will consider dietary evaluation. Will need to discuss with family about plan of care at discharge. Patient may require hospice. Family is to decide . Thrombocytopenia likely related to encephalopathy, respiratory failure, UTI: Likely related to above. Will monitor closely. Will hold Lovenox if platelet level less than 75. Will monitor closely. Peripheral smear obtained, await results. Will discuss with pulmonology and nephrology. Time Spent Managing Pts Care (In Minutes): 55
--- NOTE | 2018-08-23 10:24 | RAD REPORT ---
EXAM DESCRIPTION: RAD - Chest Single View - 08/23/2018 10:03 am CLINICAL HISTORY: Shortness of breath COMPARISON: August 21 TECHNIQUE: AP portable chest image was obtained 0931 hours . FINDINGS: Patient has significant baseline fibrotic change. Left base lung markings have increased. Findings are suspicious for developing left lung base pneumonia. No significant failure or volume ove rload. Heart and vasculature are normal. No measurable pleural effusion and no pneumothorax. No acute bony abnormality seen. No acute aortic findings suspected. IMPRESSION: Suspected left lung base pneumonia. Correlation is needed with clinical presentation.
[2018-08-23] MEDS: AZITHROMYCIN IV 500 MG in NA CHLORIDE 0.9% 250 ML IVPB SCH (13:39)
--- NOTE | 2018-08-23 14:21 | RAD REPORT ---
EXAM DESCRIPTION: RAD - Abdomen 1 View (KUB) - 08/23/2018 1:38 pm CLINICAL HISTORY: Abdominal pain, possible left renal calculus. COMPARISON: Ultrasound August 22. FINDINGS: Bowel gas pattern is non-specific. No obstruction, free air or pneumatosis. Phleboliths a re seen in the pelvis. No calcification overlying the left kidney. There is motion which decreases se nsitivity. No plain film correlate for the August 22 ultrasound finding. Bony degenerative changes are present. IMPRESSION: Motion degraded study shows no plain film evidence for left renal calculus.
[2018-08-23 15:08] LABS: Potassium 3.5 mmol/L (3.5-5.1)
[2018-08-23] MEDS ORDERED: NACHLORIDE 0.45% 1,000 ML IV SCH (19:00)
[2018-08-23 21:29] LABS: Potassium 3.3 mmol/L (3.5-5.1)
--- NOTE | 2018-08-24 00:37 | PN ---
Date of Progress Note: 08/23/2018 Chief Complaint: Acute kidney injury, hypernatremia, and severe dehydration. History Of Present Illness: The patient remains in ICU. She has nonoliguric urine output. She was found to have severe hypernatremia. She is on IV fluids. The patient was diagnosed with urinary tract infection 4 days ago and was started on antibiotics. The patient is confused, although mental status is somewhat improving. The patient has sepsis with severe leukocytosis. Lactic acid was elevated. She was found to have significant hypernatremia. Sodium level on admission was 185. She IV fluids, IV fluids were adjusted to obtain gradual correction of hypernatremia. Review of Systems: Unobtainable. The patient is agitated. Although she cannot provide review of systems, she has history of dementia. Physical Examination: Lungs: Clear to auscultation bilaterally. Heart: S1, S2. Abdomen: Soft, benign. Extremities: No edema. Laboratory Data: Sodium 168, potassium 3.5, chloride 157, BUN 24, creatinine 0.97, glucose 90, calcium 7.8. Impression And Plan: 1. Acute on chronic kidney injury with severe prerenal azotemia. BUN was 62, gradually improving. Creatinine was 1.25. The patient was found to have hypernatremia with sodium was 187, chloride 151. She is undergoing treatment with IV fluids and sodium level is gradually improving. 2. Continue to monitor electrolytes and adjust IV and hydration as needed. 3. Urinary tract infection. Continue antibiotics. 4. Respiratory failure, hypoxemia. Continue oxygenation. Monitor SpO2. 5. Severe encephalopathy, respiratory failure, urinary tract infection. Continue antibiotics and continue IV fluids for severe hypernatremia. I spent total 36 mi including 25 min to coordinate care plan. ELIZABETH/MILADIS Voice ID: [id number] Report ID: [id number] ASHANTI
[2018-08-24] MEDS: D5W 1,000 ML with POTASSIUM CL 20 MEQ IV SCH ×6 (02:19→22:36)
[2018-08-24 05:43] LABS: Absolute Lymphocytes (CBC) 2.1 K/uL (0.7-4.9); Absolute Monocytes 0.5 K/uL (0.1-1.3); Absolute Neutrophil 10.8 K/uL (1.8-8.0); Basophils % 0.1 % (0-1.3); Eosinophils % 0.9 % (0-4.4); Hematocrit 35.2 % (36.0-45.0); Lymphocytes % 15.4 % (15.3-44.8); MPV 14.3 fL (7.6-11.3); Monocytes % 3.9 % (3.3-12.3); RBC Red Blood Cell Count 3.36 M/uL (3.86-4.86)
[2018-08-24 05:50] LABS: Magnesium 2.3 mg/dL (1.8-2.4); Potassium 3.4 mmol/L (3.5-5.1)
[2018-08-24 06:08] LABS: Urine White Blood Cell Casts OK
[2018-08-24 06:09] LABS: Blood Morphology Comment NOTED (NOT SEEN); Platelet Estimate DECR; Platelets, Giant PRESENT
--- NOTE | 2018-08-24 06:55 | RAD REPORT ---
EXAM DESCRIPTION: RAD - Chest Single View - 08/24/2018 6:00 am CLINICAL HISTORY: Pneumonia COMPARISON: August 23 TECHNIQUE: AP portable chest image was obtained 0556 hour . FINDINGS: Baseline fibrotic lung pattern noted. Interstitial and alveolar opacification are present and progressive in the left lung field. No large mass or consolidation. Medial right lung base opacif ication is stable. Heart and vasculature are normal. No measurable pleural effusion and no pneumothor ax. IMPRESSION: Worsening left lung field pneumonia since prior day study.
[2018-08-24] MEDS: ARFORMOTEROL TARTRATE 15 MCG/2 ML VIAL.NEB NEB SCH ×2 (07:42→20:32)
--- NOTE | 2018-08-24 08:43 | P.PN ---
Subjective Date of Service: 08/24/18 Primary Care Provider: [facility] patient Chief Complaint: acute encephalopathy Subjective: Improving (Patient is improving on sodium is improving she is more alert responsive minimally cooperative) Review of Systems is unable to be obtained Physical Examination - Vital Signs Temperature: 98.2 F Blood Pressure: 146/62 Pulse: 60 Respirations: 22 Pulse Ox (%): 100 - Physical Exam General: Alert Respiratory: Clear to auscultation bilaterally Cardiovascular: No edema, Regular rate/rhythm Gastrointestinal: Normal bowel sounds, Soft and benign Integumentary: Rash(es) (Diffuse rash) - Studies Microbiology Data (last 24 hrs): 08/20/18 17:53 Catheterized Urine [place] Count - Final 08/20/18 17:53 Catheterized Urine - Final Medications List Reviewed: Yes Assessment & Plan - Problems (Diagnosis) (1) Hypernatremia Onset Date: 08/21/18 Current Visit: Yes Status: Acute Plan: Hypernatremia is gradually improving patient's white count is declined significantly chest x-rays little abnormal haziness on the left side so far cultures are all negative hemodynamically stable oxygenation satisfactory patient can be transferred to the floor thyroid function tests is normal (2) Rash and nonspecific skin eruption Current Visit: Yes Status: Acute Plan: Patient had a rash since admission I am not sure what the etiology is is nonpleuritic Physician Review Additional Text: Impression: Toxic encephalopathy secondary to acute on chronic respiratory failure with underlying COPD exacerbation, acute on chronic renal disease with severe hypernatremia and UTI Alzheimer's dementia Moderate malnutrition Thrombocytopenia Plan: Toxic encephalopathy secondary to acute on chronic respiratory failure with underlying COPD exacerbation, acute on chronic renal disease with severe hypernatremia and UTI: Continue with IV antibiotic therapy and COPD medication. Patient on BiPAP. Continue to wean off. Nephrology continues to adjust IV fluids. Sodium level improved. Will continue to monitor the patient closely. Patient with suspected cramping likely from dehydration. Continue with IV fluids. Will discuss with nephrology and pulmonology in detail. Will have nurses evaluate oral intake. May need to consider Dobbhoff for nutrition. Case discussed with son. Patient remains DNR. Discuss case with son about the possibility of hospice if her condition does not improve. Other family members to come and decide on this further. Also discussion revolved around oral intake. PEG tube if with significant dysphagia versus hospice. Will readdress this in detail with family. Alzheimer's dementia: Restart home medication. Continue to monitor closely. Depression: Continue medication Moderate malnutrition: Once the patient is more alert will need to determine oral intake status. If was significant dysphagia will need to discuss with family about the possibility of PEG tube versus hospice. Patient may require Dobhoff for nutrition. But with her severe dementia ashy may pull this out. Will discuss options with family. Will monitor closely. Thrombocytopenia: Likely related to above. Will monitor closely. Will hold Lovenox if platelet level less than 75. Will monitor closely. Peripheral smear obtained. Will discuss with pulmonology and nephrology.
--- NOTE | 2018-08-24 09:02 | PN ---
Date of Progress Note: 08/22/2018 Chief Complaint: Hypernatremia, hyperosmolar, altered mental status in a patient who was found to have severe hypernatremia and dehydration and acute kidney injury. History Of Present Illness: The patient has nonoliguric acute kidney injury secondary to volume depletion in setting of chronic kidney disease. The patient has history of dementia and COPD. She is a 78-year-old woman with history of COPD and anxiety. She was sent from half-way for altered mental status. She was diagnosed with urinary tract infection 5 days ago and was started on antibiotics. She was found unresponsive in half-way and hypoxemic. She was found to have severe leukocytosis with bandemia and is treated with antibiotics for sepsis. She is started on IV fluids with D5W for severe hypernatremia. Review of Systems: Unobtainable. The patient is obtunded, lethargic, cannot provide review of systems. Physical Examination: Lungs: Clear to auscultation bilaterally. Heart: S1, S2. Abdomen: Soft, benign. Extremities: No edema. Impression And Plan: 1. Urinary tract infection. Continue antibiotics. 2. Sepsis bandemia, leukocytosis. Blood culture and urine culture obtained, pending culture results. Adjust antibiotics as needed. 3. Hypoxemic respiratory failure. The patient will continue therapy with oxygen . The patient is currently on nasal cannula. 4. Hypernatremia, hyperosmolar. Continue IV fluids and monitor electrolytes and renal panel and adjust hydration as needed. 5. Volume depletion with hypernatremia and dehydration. The patient did not respond to half normal saline. The patient is currently on D5W. Monitor levels every 6 hours. The patient will have urine osmolality and electrolytes level ordered. I spent total 36 min including 25 min to coordinate care plan. ELIZABETH/MILADIS Voice ID: [id number] Report ID: [id number] ASHANTI
[2018-08-24] MEDS: THIAMINE 200 MG/2 ML INJ IVP SCH (09:37)
[2018-08-24] MEDS: CEFTRIAXONE/SWI 1gm 1 GM/10 ML SYR IV SCH (09:37)
[2018-08-24] MEDS: ENOXAPARIN 30 MG/0.3 ML SQ SCH (09:37)
[2018-08-24] MEDS: AZITHROMYCIN IV 500 MG in NA CHLORIDE 0.9% 250 ML IVPB SCH (09:38)
[2018-08-24] MEDS: SERTRALINE HCL 100 MG TAB PO SCH (09:38)
[2018-08-24] MEDS: JUVEN PACKET PO SCH ×2 (09:45→21:00)
[2018-08-24] MEDS: ENSURE ENLIVE 237 ML CAN PO SCH ×2 (09:45→21:00)
--- NOTE | 2018-08-24 12:18 | RAD REPORT ---
EXAM DESCRIPTION: RAD - Barium Swallow Modified - 08/24/2018 12:12 pm CLINICAL HISTORY: pneumonia COMPARISON: Renal Ultrasound-Complete dated 08/22/2018 TECHNIQUE: The patient was given liquid, semi-solid and solid forms of barium. Lateral view fluorosc opic imaging was performed in conjunction with speech pathology service. FINDINGS: Laryngeal penetration cleared with thin by wider cup, and small sip; not cleared with nect ar by cup with thin by cup and large sip. Aspiration no cough with large bolus of pudding. Pharyngeal residue on vallecular with thin, honey, pudding, and nectar consistencies. Delayed oral transit (up to 28 seconds or more), decreased hyolaryngeal elevation and pro traction; d elayed pharyngeal swallow (3 seconds). Total fluoroscopy time: 3 minutes and 29 seconds.
[2018-08-24 12:54] LABS: Potassium 3.1 mmol/L (3.5-5.1)
[2018-08-24] MEDS: KCL 20 MEQ/100 mL IVPB 20 MEQ/100 ML BAG IV SCH ×2 (16:29→19:09)
--- NOTE | 2018-08-24 19:25 | P.PN ---
Subjective Date of Service: 08/24/18 Primary Care Provider: [facility] Chief Complaint: acute encephalopathy Subjective: No C/O voiced, Improving Patient seen and examined at bedside. No family at bedside. Patient is a long term patient, seems to be at baseline mentation jain (has underlying severe dementia); eating well, per nurse. BALDEVEON Review of Systems 10-point ROS is otherwise unremarkable Physical Examination - Vital Signs Temperature: 98.1 F Blood Pressure: 91/62 Pulse: 64 Respirations: 24 Pulse Ox (%): 96 - Physical Exam General: Confused HEENT: Atraumatic, PERRLA, EOMI Neck: Supple, JVD not distended Respiratory: Clear to auscultation bilaterally, Normal air movement Cardiovascular: Regular rate/rhythm, Normal S1 S2 Gastrointestinal: Normal bowel sounds, No tenderness - Studies Medications List Reviewed: Yes Assessment And Plan - Plan Toxic encephalopathy secondary to acute on chronic respiratory failure with underlying COPD exacerbation, acute on chronic renal disease with severe hypernatremia and UTI: Continue with IV antibiotic therapy and COPD medication. Patient on BiPAP. Continue to wean off. Nephrology continues to adjust IV fluids. Sodium level improved. Will continue to monitor the patient closely. Patient with suspected cramping likely from dehydration. Continue with IV fluids. Will discuss with nephrology and pulmonology in detail. Will have nurses evaluate oral intake. May need to consider Dobbhoff for nutrition. Patient remains DNR. Family members to come and decide on this further hospice/goals of care decision. Also discussion revolved around oral intake. PEG tube if with significant dysphagia versus hospice. Will readdress this in detail with family. Alzheimer's dementia: Restart home medication. Continue to monitor closely. Depression: Continue medication Moderate malnutrition: Once the patient is more alert will need to determine oral intake status. If was significant dysphagia will need to discuss with family about the possibility of PEG tube versus hospice. Patient may require Dobhoff for nutrition. But with her severe dementia ashy may pull this out. Will discuss options with family. Will monitor closely. Thrombocytopenia: Likely related to above. Will monitor closely. Will hold Lovenox if platelet level less than 75. Will monitor closely. Peripheral smear obtained. Will discuss with pulmonology and nephrology.
[2018-08-24] MEDS: IPRATROPIUM BROM 0.5MG/2.5ML NEB PRN (20:32)
--- NOTE | 2018-08-25 03:45 | PN ---
Date of Progress Note: 08/24/2018 Chief Complaint: Acute kidney injury, hypernatremia, and severe dehydration. History Of Present Illness: The patient remains in ICU. She is on IV fluids. Hypernatremia gradually has been improving with treatment. The patient is on IV fluids. She was found to have hypokalemia and is to have potassium replacement. The patient remains confused. She has underlying dementia. The patient has been treated with antibiotics. She was found to have severe leukocytosis. Lactic acid was elevated, and she was admitted to ICU for sepsis. Sodium level on admission was 185. She was started on IV fluids, and rate of IV fluid replacement was adjusted according to blood work results. Review of Systems: The patient cannot provide review of systems. She has history of dementia. She remains confused. Physical Examination: Lungs: Clear to auscultation bilaterally. Heart: S1, S2. No pericardial friction rub. Abdomen: Soft, benign. Extremities: No edema. Laboratory Data: Sodium is 163, potassium 3.1, chloride 130, BUN is 25, creatinine 0.85, and calcium 7.3. Impression And Plan: 1. Hypernatremia, hyperosmolar, dehydration, acute kidney injury secondary to volume depletion. The patient will continue IV fluids. Creatinine level is improving gradually. There is persistent hyperazotemia. Continue hydration. 2. Urinary tract infection. Continue antibiotics. 3. Respiratory failure, hypoxemia. The patient will continue oxygenation. 4. Severe encephalopathy, underlying dementia, respiratory failure, urinary tract infection. Continue antibiotics to treat sepsis. Adjust hydration according to blood work results. I spent total 36 min including 25 min to coordinate care plan. ELIZABETH/MILADIS Voice ID: [id number] Report ID: [id number] ASHANTI
[2018-08-25] MEDS: D5W 1,000 ML with POTASSIUM CL 20 MEQ IV SCH ×6 (04:18→15:45)
[2018-08-25 05:33] LABS: Absolute Monocytes 0.6 K/uL (0.1-1.3); Absolute Neutrophil 9.9 K/uL (1.8-8.0); Eosinophils % 1.7 % (0-4.4); Hematocrit 32.1 % (36.0-45.0); Lymphocytes % 15.3 % (15.3-44.8); MPV 15.1 fL (7.6-11.3); RBC Red Blood Cell Count 3.09 M/uL (3.86-4.86)
[2018-08-25 05:53] LABS: BUN Blood Urea Nitrogen 15 mg/dL (7-18); Bicarbonate 24 mmol/L (21-32); Glucose Level 123 mg/dL (74-106); Magnesium 1.8 mg/dL (1.8-2.4); Potassium 3.6 mmol/L (3.5-5.1); Sodium Level 152 mmol/L (136-145)
[2018-08-25 06:19] LABS: Blood Morphology Comment NOT SEEN (NOT SEEN); Platelet Estimate DECR
[2018-08-25] MEDS ORDERED: MAGNESIUM SULFATE 1 gm IVPB 1 GM/100 ML BAG IV ONE ×2 (07:00→09:34)
[2018-08-25] MEDS ORDERED: KCL 20 MEQ/100 mL IVPB 20 MEQ/100 ML BAG IV SCH (07:00)
[2018-08-25 07:08] LABS: Folic Acid, (Folate) 5.7 ng/mL (3.1-17.5); Thyroid Stimulating Hormone 1.01 uIU/mL (0.360-3.740)
[2018-08-25] MEDS: ARFORMOTEROL TARTRATE 15 MCG/2 ML VIAL.NEB NEB SCH ×2 (08:12→19:54)
[2018-08-25] MEDS: CEFTRIAXONE/SWI 1gm 1 GM/10 ML SYR IV SCH (08:28)
[2018-08-25] MEDS: THIAMINE 200 MG/2 ML INJ IVP SCH (08:28)
[2018-08-25] MEDS: SERTRALINE HCL 100 MG TAB PO SCH (08:29)
[2018-08-25] MEDS: AZITHROMYCIN IV 500 MG in NA CHLORIDE 0.9% 250 ML IVPB SCH (08:30)
[2018-08-25] MEDS: ENSURE ENLIVE 237 ML CAN PO SCH ×2 (09:00→21:00)
[2018-08-25] MEDS: JUVEN PACKET PO SCH ×2 (09:00→21:00)
[2018-08-25] MEDS: ENOXAPARIN 30 MG/0.3 ML SQ SCH (09:33)
[2018-08-25] MEDS ORDERED: POTASSIUM CL 40 MEQ in NA CHLORIDE 0.9% 500 ML IV SCH (10:00)
--- NOTE | 2018-08-25 14:13 | P.PN ---
Subjective Date of Service: 08/25/18 Primary Care Provider: [facility] patient Chief Complaint: Hypernatremia Subjective: No new changes Patient seen and examined at bedside. No family at bedside. Patient is a [facility] patient, seems to be at baseline mentation jain (has underlying severe dementia); eating well, per nurse. NAEON Not eating as well was morning; still with possible aspiration while Eating. Review of Systems 10-point ROS is otherwise unremarkable Physical Examination - Vital Signs Temperature: 98.2 F Blood Pressure: 146/62 Pulse: 60 Respirations: 22 Pulse Ox (%): 100 - Physical Exam General: In no apparent distress, Confused (At baseline), Other (Elderly) HEENT: Atraumatic, PERRLA, EOMI Neck: Supple, JVD not distended Respiratory: Clear to auscultation bilaterally, Normal air movement Cardiovascular: Regular rate/rhythm, Normal S1 S2 Gastrointestinal: Normal bowel sounds, No tenderness Musculoskeletal: No tenderness Integumentary: No rashes Neurological: Normal speech, Normal tone, Normal affect Lymphatics: No axilla or inguinal lymphadenopathy - Studies Medications List Reviewed: Yes Assessment And Plan - Plan Toxic encephalopathy acute on chronic respiratory failure with underlying COPD exacerbation, acute on chronic renal disease, stage 2 severe hypernatremia and UTI: Continue with IV antibiotic therapy and COPD medication. Patient now off of BiPAP. Nephrology continues to adjust IV fluids. Sodium level continues to improve appropriately. We Will continue to monitor the patient closely. May need to consider Dobbhoff for nutrition as patient is not eating as well this morning. Patient remains DNR. Family members to come and decide on this further hospice/goals of care decision. PEG tube if with significant dysphagia versus hospice. Will readdress this in detail with family ( at 5:00 p.m. today) Alzheimer's dementia: Restart home medication. Continue to monitor closely. Depression: Continue medication Moderate malnutrition: Once the patient is more alert will need to determine oral intake status. If was significant dysphagia will need to discuss with family about the possibility of PEG tube versus hospice. Patient may require Dobhoff for nutrition. But with her severe dementia as she may pull this out. Will discuss options with family. Will monitor closely. Thrombocytopenia: Likely related to above. Will monitor closely. Will hold Lovenox if platelet level less than 75. Will monitor closely. Peripheral smear obtained.
--- NOTE | 2018-08-25 20:27 | PN ---
Date of Progress Note: 08/25/2018 Subjective: The patient is still poorly awake. Poor intake. Sodium started trending down. Objective: General: When I saw the patient, the patient still poor intake. Vital Signs: Blood pressure 146/62, pulse of 60. Afebrile. Chest: Faint crackles, bilateral base. Heart: S1, S2. Systolic murmur. Abdomen: Soft. Nontender. Extremity: No edema. Laboratory Data: WBC 12.7, H and H 10.4 and 32.1, platelet of 73. Sodium 152, potassium 3.6, BUN 15 , creatinine 0.5, GFR above 90, calcium 6.8, magnesium 1.8, albumin 2.2, corrected calcium 8.4. Assessment And Plan: 1.Acute kidney injury secondary to prerenal, secondary to dehydration, recovered, resolved. 2.Hyponatremia, secondary to depletion, trending down, improving. I am going to go ahead and contin ue D5 for the time being. 3.Hypokalemia, hypomagnesemia. We will supplement. 4.Hypocalcemia, possible secondary to poor intake. I am going to send for vitamin D level and PTH t o evaluate if the patient is going to need vitamin D analogue. 5.Advance dementia with encephalopathy. Continue supportive care. 6.Encephalopathy secondary to urinary tract infection. Culture still negative. I am going to krystal nue current antibiotic, and we will follow up. Current Medications: Include, 1.Azithromycin. 2.Ceftriaxone. 3.Lovenox. 4.Haloperidol. 5.Zoloft. 6.Ensure. 7.KCl. 8.Magnesium oxide. 9.Thiamine. 10.D5 at 100 per hour. MCKENZIE/MILADIS Voice ID: [id number] Report ID: [id number]
[2018-08-26] MEDS: D5W 1,000 ML with POTASSIUM CL 20 MEQ IV SCH ×6 (00:30→09:13)
[2018-08-26 06:41] LABS: Absolute Lymphocytes (CBC) 1.8 K/uL (0.7-4.9); Absolute Monocytes 0.6 K/uL (0.1-1.3); Absolute Neutrophil 8.4 K/uL (1.8-8.0); Basophils % 0.2 % (0-1.3); Eosinophils % 1.2 % (0-4.4); Lymphocytes % 16.6 % (15.3-44.8); MPV 14.8 fL (7.6-11.3); Monocytes % 5.8 % (3.3-12.3); RBC Red Blood Cell Count 3.28 M/uL (3.86-4.86)
[2018-08-26 07:05] LABS: Magnesium 1.8 mg/dL (1.8-2.4); Potassium 4.1 mmol/L (3.5-5.1)
[2018-08-26 09:02] LABS: Blood Morphology Comment NOT SEEN (NOT SEEN); Platelet Estimate DECR; Platelets, Giant FEW
[2018-08-26] MEDS: CEFTRIAXONE/SWI 1gm 1 GM/10 ML SYR IV SCH (09:02)
[2018-08-26] MEDS: THIAMINE 200 MG/2 ML INJ IVP SCH (09:02)
[2018-08-26] MEDS: AZITHROMYCIN IV 500 MG in NA CHLORIDE 0.9% 250 ML IVPB SCH (09:03)
[2018-08-26] MEDS: ENOXAPARIN 30 MG/0.3 ML SQ SCH (09:03)
[2018-08-26] MEDS: SERTRALINE HCL 100 MG TAB PO SCH (09:03)
[2018-08-26] MEDS: JUVEN PACKET PO SCH ×2 (09:13→22:00)
[2018-08-26] MEDS: ENSURE ENLIVE 237 ML CAN PO SCH ×2 (09:13→22:00)
[2018-08-26] MEDS ORDERED: MAGNESIUM SULFATE 1 gm IVPB 1 GM/100 ML BAG IV ONE (10:04)
[2018-08-26] MEDS: ARFORMOTEROL TARTRATE 15 MCG/2 ML VIAL.NEB NEB SCH ×2 (10:26→20:00)
--- NOTE | 2018-08-26 15:08 | P.PN ---
Subjective Date of Service: 08/26/18 Primary Care Provider: [facility] patient Chief Complaint: Hypernatremia Subjective: No new changes Patient seen and examined at bedside. No family at bedside. Patient is a long term patient, seems to be at baseline mentation jain (has underlying severe dementia); eating well, per nurse. NAEON Not eating as well was morning; still with aspiration while Eating. Transferred to the floor from the ICU, hemodynamically stable Review of Systems 10-point ROS is otherwise unremarkable Physical Examination - Vital Signs Temperature: 98.6 F Blood Pressure: 145/65 Pulse: 67 Respirations: 20 Pulse Ox (%): 88 - Physical Exam General: In no apparent distress, Demented, Confused HEENT: Atraumatic, PERRLA, EOMI Neck: Supple, JVD not distended Respiratory: Clear to auscultation bilaterally, Normal air movement Cardiovascular: Regular rate/rhythm, Normal S1 S2 Gastrointestinal: Normal bowel sounds, No tenderness Musculoskeletal: No tenderness Integumentary: No rashes Neurological: Normal speech, Normal tone, Normal affect Lymphatics: No axilla or inguinal lymphadenopathy - Studies Microbiology Data (last 24 hrs): 08/20/18 16:09 Blood - Blood Aerobic Blood Culture - Final No growth in 5 days. 08/20/18 16:09 Blood - Blood Anaerobic Blood Culture - Final Medications List Reviewed: Yes Assessment And Plan - Plan Toxic encephalopathy Multifactorial: Acute on chronic respiratory failure, hypernatremia, UTI Mentation jain, patient seems to be at baseline Acute on chronic respiratory failure with underlying COPD exacerbation Improved, now off of BiPAP. Continue IV fluids this time Continue oxygen as needed, continue breathing treatments as needed Acute on chronic renal disease, stage 2 Creatinine seems to be back at baseline. Nephrology consulted, recommendations appreciated. Continue IV fluids at this time. Severe hypernatremia Sodium level continues to improve appropriately. Continue to monitor UTI: Continue with IV antibiotic therapy Alzheimer's dementia: Restart home medication. Continue to monitor closely. Dysphasia Failed MBS/aspiration Son would like to continue with PEG tube placement as he states that he cannot watch his mother store and . He is still below potentially considering hospice after she returns back to [facility]. General surgery consulted for PEG tube placement Depression: Continue medication Moderate malnutrition: Failed mbs, continues to aspirate. General surgery consulted for PEG tube placement Thrombocytopenia: Likely related to above. Will monitor closely. Will hold Lovenox if platelet level less than 75. Will monitor closely. Peripheral smear obtained. DVT prophylaxis: Lovenox GI prophylaxis: None Diet: Regular
--- NOTE | 2018-08-26 16:25 | PN ---
Date of Progress Note: 08/26/2018 NEPHROLOGY FOLLOWUP Subjective: The patient is slightly more awake today. No nausea. No vomiting. Still on IV fluid. Physical Examination: Vital Signs: Blood pressure 139/72, pulse of 69, afebrile. The patient had good urine output. Chest: Clear to auscultation. Heart: S1 and S2. Systolic murmur. Abdomen: Soft, nontender. Extremities: No edema. Neurologic: Follows up simple command. Laboratory Data: WBC 11, H and H of 11.2 and 34, platelets of 82. Sodium 146, potassium 4.1, bicarb 25, chloride 116, BUN 13, creatinine 0.6, calcium of 7, and magnesium 1.8. PTH 195. Current Medications: The patient on include Z-Bruno, ceftriaxone, Lovenox, Tylenol, Zoloft, Ensure, ip ratropium, Zofran, magnesium oxide, and D5 at 100. Assessment And Plan: 1.Acute kidney injury secondary to prerenal, recovered, resolved. 2.Hypernatremia secondary to dehydration, prerenal. Continue to trend down. The patient has still poor intake. I am going to continue D5 for the time being and we will follow up. 3.Urinary tract infection, culture still negative. We will continue current antibiotic. We will fo llow up with primary. 4.Atypical pneumonia. Continue current treatment. 5.Encephalopathy, metabolic, secondary to urinary tract infection, continues to recover. Continue s upportive care. MCKENZIE/MILADIS Voice ID: [id number] Report ID: [id number]
[2018-08-26] MEDS: CALCIUM CARB 500MG/VIT D 200 IU TAB PO SCH (21:00)
[2018-08-27] MEDS: D5W 1,000 ML with POTASSIUM CL 20 MEQ IV SCH ×6 (01:01→13:14)
[2018-08-27 07:51] LABS: BUN Blood Urea Nitrogen 12 mg/dL (7-18); Bicarbonate 23 mmol/L (21-32); Glucose Level 119 mg/dL (74-106); Magnesium 1.8 mg/dL (1.8-2.4); Potassium 4.2 mmol/L (3.5-5.1); Sodium Level 143 mmol/L (136-145)
[2018-08-27] MEDS: ARFORMOTEROL TARTRATE 15 MCG/2 ML VIAL.NEB NEB SCH ×2 (08:08→20:10)
[2018-08-27] MEDS: JUVEN PACKET PO SCH ×2 (09:00→21:00)
[2018-08-27] MEDS: ENSURE ENLIVE 237 ML CAN PO SCH ×2 (09:00→21:00)
[2018-08-27] MEDS: CEFTRIAXONE/SWI 1gm 1 GM/10 ML SYR IV SCH (10:02)
[2018-08-27] MEDS: AZITHROMYCIN IV 500 MG in NA CHLORIDE 0.9% 250 ML IVPB SCH (10:02)
[2018-08-27] MEDS: THIAMINE 200 MG/2 ML INJ IVP SCH (10:03)
[2018-08-27] MEDS: ENOXAPARIN 30 MG/0.3 ML SQ SCH (10:03)
[2018-08-27] MEDS: SERTRALINE HCL 100 MG TAB PO SCH (10:04)
[2018-08-27] MEDS: CALCIUM CARB 500MG/VIT D 200 IU TAB PO SCH ×2 (10:04→21:00)
[2018-08-27] MEDS ORDERED: Magnesium Sulfate 2gm IVPB 2 G/50 ML BAG IV ONE (11:21)
--- NOTE | 2018-08-27 14:14 | PN ---
Date of Progress Note: 08/27/2018 NEPHROLOGY FOLLOWUP Subjective: The patient is still more sleepy, occasionally gets agitated, poor intake. Physical Examination: Vital Signs: Blood pressure 143/63, pulse of 73. Chest: Clear to auscultation. Heart: S1 and S2, regular. Abdomen: Soft, nontender. Extremities: No edema. Laboratory Data: H and H of 11.2 and 34. Sodium 143, potassium 4.2, bicarb 23, creatinine 0.6, calc ium 7.3, magnesium 1.8. PTH 195. Vitamin D still pending. Current Medications: The patient on include, 1.Z-Bruno. 2.Ceftriaxone. 3.Calcium carbonate. 4.Lovenox. 5.Zoloft. 6.Zofran. 7.Thiamine. Assessment And Plan: 1.Acute kidney injury secondary to prerenal, recovered, resolved. 2.Urinary tract infection, culture negative. Continue current antibiotic. 3.Hypernatremia secondary to depletion, recovered. I am going to go ahead and decrease IV fluid, pl an to discontinue. 4.Failure to thrive, poor intake. Plan to discuss with the family about hospice care. 5.Hypomagnesemia, we will supplement. 6.Hyperparathyroidism. Waiting for vitamin D to decide about the treatment. Currently, we will con tinue calcium carbonate. LISETTE Voice ID: [id number] Report ID: [id number]
--- NOTE | 2018-08-27 14:50 | CON ---
Date of Consultation: 08/27/2018 Brief History Of Present Illness: The patient is a 78-year-old female with a history of COPD, steve ia and anxiety, who was admitted on 08/20/2018 with concerns of acute encephalopathy. She had decrea sed mental status and she has taken care of at a nursing facility. She had some desaturation on that during that time and was admitted to the hospital with the above-stated complaints. During her admi ssion, however, she continued to have difficulty with the nutrition and having malnourishment. It wa s considered that she should have a speech evaluation and swallow eval, which essentially showed that she had decreased swallowing function and as such, it was recommended that she consider a non-oral r oute for nutrition and as such, I was consulted to see the patient regarding a PEG tube placement now . The patient is nonverbal due to her significant dementia. Her son, Aayush, is the medical power- of-assistant county attorney and I have spoken with him regarding much of the history of the patient as well as for th e ultimate plan, which will be elicited later. Past Medical History: Significant for dementia, COPD, anxiety. 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 He does not remember the dates of these. However, he was a child when these occurred, but both were open procedures. He cannot recall any other surgical histo ry, but does not have a significant knowledge of her surgical history, he states. The remainder of t he information is obtained by the chart and the patient's son as the patient is nonverbal as describe d above. Family History: Essentially negative. Social History: She used to smoke. No recreational drug use. No alcoholism. Review of Systems: Unable to obtain. Allergies: SHE HAS NO KNOWN DRUG ALLERGIES. Home Medications: At the nursing facility include Ensure, Derrick, memantine, Zoloft and Atarax. Physical Examination: General: At the time of my examination, general, she is awake and alert, but nonverbal. She is purp oseful with the movement and attempts to deflect from any examination. Her BMI is 18.2. Vital signs : Her blood pressure was 143/63, pulse is 73, respiratory rate 22, temperature 98.3. General: She i s awake and alert but as described. Psychiatric: She is nonverbal and somewhat combative physically. HEENT: She is normocephalic. Her sclerae are anicteric. Her mucous membranes are moist. Oropharyn x is clear. Neck: Supple. No JVD. Chest: Normal expansion and excursion. Cardiovascular: Regular rate and rhythm. Pulmonary: Clear to auscultation bilaterally. Abdomen: Soft, scaphoid. Well-healed midline laparotomy scar evident. Extremities: No clubbing, cyanosis, or edema. Laboratory Data: Laboratory exam reveals a white blood cell count of 11.0, hemoglobin is 11.2, hemat ocrit 34.0, platelet count is 82. Her sodium is 143, potassium 4.2, chloride 113, carbon dioxide 23, BUN 12, creatinine 0.6, glucose is 119. Her calcium is 7.3. She had a modified barium swallow on 08/24, which was officially read as laryngeal penetration cleared with thin wider cup and small sip; n ot cleared with nectar by cup, with thin by cup and large sip. Aspiration, no cough with large bolus of pudding. Pharyngeal residue on vallecular with thin honey, pudding, and nectar consistencies. D elayed oral transit up to 20 seconds or more, delayed hyolaryngeal elevation and protraction, delayed pharyngeal swallow 3 seconds, total fluoroscopy time 3 minutes and 29 seconds. She additionally had a speech pathologist examination which stated that the patient was presented with several single sip s of nectar ice tea by spoon at a slow rate, placed cold metal spoon in the tongue in between present ations with thermal tactile stimulation to elicit multiple swallows to decrease suspected pharyngeal residues. The patient presented half teaspoon of pureed. The patient with mildly impaired bolus acc eptance, reduced labial seal, prolonged oral hold, impaired bolus of procurement and delayed A-P reddy sit. Once the swallow was triggered, the patient exhibited delayed coughing suspicious for aspiratio n, alternative bite and sips and thinning out pureed with some water to reduce s/s minimally, the pat ient remained at higher risk of aspiration and non-oral means of hydration/nutrition might be conside red a better alternative. Assessment And Plan: This is a 78-year-old female who presents with concerns for difficulty swallowi ng and malnourishment and at high risk for aspiration. As such, I have discussed the risks, benefits , and alternatives of a PEG tube placement with her son including but not limited to bleeding, infect ion, damage to surrounding tissues, injury to colon and intestines, possible septic shock, and need f or further operations and procedures. The patient's son states that he wishes to discuss the procedu re with the family as he is considering palliative care as he states that the patient would likely no t submit to any surgical intervention and would likely not want to live in her current condition. As such, they will hold off on any surgical intervention at this time until they have a family meeting which will occur latter part of today or likely tomorrow, as he works till 5:00 p.m. As such, I have explained that we will likely consider surgical intervention after the family decision has been made , I will be available for future needs, should the patient's family decided to proceed with PEG tube placement. Thank you for this interesting consult. NOHEMY Voice ID: [id number] Report ID: [id number]
[2018-08-28] MEDS: ARFORMOTEROL TARTRATE 15 MCG/2 ML VIAL.NEB NEB SCH (08:02)
[2018-08-28] MEDS: SERTRALINE HCL 100 MG TAB PO SCH (08:52)
[2018-08-28] MEDS: JUVEN PACKET PO SCH (08:52)
[2018-08-28] MEDS: CALCIUM CARB 500MG/VIT D 200 IU TAB PO SCH (08:52)
[2018-08-28] MEDS: ENSURE ENLIVE 237 ML CAN PO SCH (08:52)
[2018-08-28] MEDS: ENOXAPARIN 30 MG/0.3 ML SQ SCH (09:00)
[2018-08-28] MEDS: D5W 1,000 ML with POTASSIUM CL 20 MEQ IV SCH ×2 (09:28)
[2018-08-28] MEDS: THIAMINE 200 MG/2 ML INJ IVP SCH (09:30)
[2018-08-28] MEDS: CEFTRIAXONE/SWI 1gm 1 GM/10 ML SYR IV SCH (09:30)
[2018-08-28] MEDS: AZITHROMYCIN IV 500 MG in NA CHLORIDE 0.9% 250 ML IVPB SCH (09:30)
--- NOTE | 2018-08-28 10:09 | P.PN ---
Subjective Date of Service: 08/28/18 Primary Care Provider: [facility] patient Chief Complaint: Hypernatremia Subjective: No new changes CAPRI resolved hypernatremia resolved advanced advanced dementia with poor Po intake, family refused PEG need GOC verification Physical Examination - Vital Signs Temperature: 98.6 F Blood Pressure: 127/61 Pulse: 68 Respirations: 20 Pulse Ox (%): 90 - Physical Exam General: Alert, In no apparent distress HEENT: Atraumatic Neck: Supple, Without JVD or thyroid abnormality Respiratory: Diminished Cardiovascular: Regular rate/rhythm, Normal S1 S2 Gastrointestinal: Normal bowel sounds, Soft and benign - Studies Medications List Reviewed: Yes Assessment And Plan - Current Problems (Diagnosis) (1) Hypernatremia Onset Date: 08/21/18 Current Visit: Yes Status: Acute (2) Volume depletion Onset Date: 08/21/18 Current Visit: Yes Status: Acute - Plan Hypernatremia , resolved Due to dehydration , pt didnt respond to NS or 1/2 NS UTI Cont ABx Hypoxemic resp failure Improved CAPRI resolved due to prerenal azotemia Advanced dementia family refused PEG need GOC verification
[2018-08-28 10:29] VITALS: O2SAT 90
--- NOTE | 2018-08-28 13:27 | P.PN ---
Subjective Date of Service: 08/27/18 Primary Care Provider: [facility] patient Chief Complaint: Hypernatremia Patient seen and examined at bedside. No family at bedside. NAEON advanced dementia, not tolerating feeds due to aspiration. Review of Systems 10-point ROS is otherwise unremarkable Physical Examination - Vital Signs Temperature: 98.6 F Blood Pressure: 127/61 Pulse: 68 Respirations: 20 Pulse Ox (%): 90 - Physical Exam General: In no apparent distress, Confused HEENT: Atraumatic, PERRLA, EOMI Neck: Supple, JVD not distended Respiratory: Clear to auscultation bilaterally, Normal air movement Cardiovascular: Regular rate/rhythm, Normal S1 S2 Gastrointestinal: Normal bowel sounds, No tenderness Musculoskeletal: No tenderness Integumentary: No rashes Neurological: Normal speech, Normal tone, Normal affect Lymphatics: No axilla or inguinal lymphadenopathy - Studies Medications List Reviewed: Yes Assessment And Plan - Plan Toxic encephalopathy Multifactorial: Acute on chronic respiratory failure, hypernatremia, UTI Mentation jain, patient seems to be at baseline Acute on chronic respiratory failure with underlying COPD exacerbation Improved, now off of BiPAP. Continue IV fluids this time Continue oxygen as needed, continue breathing treatments as needed Acute on chronic renal disease, stage 2 Creatinine seems to be back at baseline. Nephrology consulted, recommendations appreciated. Continue IV fluids at this time. Severe hypernatremia Resolved Continue to monitor UTI: Continue with IV antibiotic therapy Alzheimer's dementia: Restart home medication. Continue to monitor closely. Dysphasia Failed MBS/aspiration Family now declining PEG placement. Will consider hospice at [facility]. Depression: Continue medication Moderate malnutrition: Failed mbs, continues to aspirate. General surgery consulted for PEG tube placement Thrombocytopenia: Likely related to above. Will monitor closely. Will hold Lovenox if platelet level less than 75. Will monitor closely. Peripheral smear obtained. DVT prophylaxis: Lovenox GI prophylaxis: None Diet: Regular Dispo: Pending hospice decision
--- NOTE | 2018-08-28 13:31 | P.PN ---
Subjective Date of Service: 08/28/18 Primary Care Provider: shelter patient Chief Complaint: Hypernatremia Patient seen and examined at bedside. No family at bedside. NAEON advanced dementia, not tolerating feeds due to aspiration. Review of Systems 10-point ROS is otherwise unremarkable Physical Examination - Vital Signs Temperature: 98.6 F Blood Pressure: 127/61 Pulse: 68 Respirations: 20 Pulse Ox (%): 90 - Studies Medications List Reviewed: Yes Assessment And Plan - Plan Toxic encephalopathy Multifactorial: Acute on chronic respiratory failure, hypernatremia, UTI Mentation jain, patient seems to be at baseline Acute on chronic respiratory failure with underlying COPD exacerbation Improved, now off of BiPAP. Continue IV fluids this time Continue oxygen as needed, continue breathing treatments as needed Acute on chronic renal disease, stage 2 Creatinine seems to be back at baseline. Nephrology consulted, recommendations appreciated. Continue IV fluids at this time. Severe hypernatremia Resolved Continue to monitor UTI: Continue with IV antibiotic therapy Alzheimer's dementia: Restart home medication. Continue to monitor closely. Dysphasia Failed MBS/aspiration Family now declining PEG placement. Will consider hospice at shelter. Depression: Continue medication Moderate malnutrition: Failed mbs, continues to aspirate. General surgery consulted for PEG tube placement Thrombocytopenia: Likely related to above. Will monitor closely. Will hold Lovenox if platelet level less than 75. Will monitor closely. Peripheral smear obtained. DVT prophylaxis: Lovenox GI prophylaxis: None Diet: Regular Dispo: Pending hospice decision [facility]charge Plan: [facility]
[2018-08-28 17:46] VITALS: BP 127/53; TEMP 98
[2018-08-29 10:39] LABS: Vitamin D 1,25-Dihydroxy Total 29 pg/mL (18-72); Vitamin D,1,25-OH2, D2 <8 pg/mL
--- NOTE | 2018-08-29 16:31 | P.DS ---
Admission Date: 08/20/18 Discharge Date: 08/28/18 Primary Care Provider: [facility] patient Disposition: TRANSFER TO [facility] Comment: With hospice care Discharge Condition: FAIR Reason for Admission: Hypernatremia Consultations: General surgery Nephrology Pulmonology Brief History of Present Illness: Ms Troy is a 78 years old woman with history of COPD, Dementia and anxiety, who is resident of a local correction, she was diagnosed with UTI 4 days ago and was started on oral antibiotics. Today, NH staff found the patient unresponsive. There are no history of fever, chills, more cough than usual or chest pain. O2 sat was 70,s on RA, when EMS arrived she was placed on NRB mask and O2 sat increased to 85%. At arrival her temp was 99.1F, blood pressure on the lower side 102/78. Lab work shows luekocytosis 20.0 K with bandemia 10%. Lactate elevated, normal procalcitonin. Sodium level was significantly elevated 185 mmol/L. CXR shows extensive COPD. Influenza screening is negative. Head CT shows no acute abnormalities. Hospital Course: Patient was admitted for: Toxic encephalopathy Multifactorial: Acute on chronic respiratory failure, hypernatremia, UTI Mentation jain, patient returned back to baseline with provided treatment. Acute on chronic respiratory failure with underlying COPD exacerbation She was started on BiPAP, gradually weaned off. She remained stable respiratory jain off of BiPAP. She was given breathing treatments and provide oxygen as needed. Acute on chronic renal disease, stage 2 Creatinine back to baseline with IV fluids. Nephrology was consulted Severe hypernatremia Sodium with appropriate improvement with IV fluids. In normal range prior to discharge. Nephrology was consulted. Dysphasia/aspiration Failed MBS/aspiration. Extensive conversation with the son and [id number] are regarding further goals of care including PEG tube placement. Initially, family wanted PEG tube and therefore surgery was consulted for PEG tube placement. After extensive conversation, son decided event they would not like to go ahead with the PEG tube placement. Instead they would like patient to go back to the correction with hospice care. [facility] was contacted to see which hospice facilities work with correction. Son chose a hospice facility, patient was discharged back to the correction with hospice care. Vital Signs/Physical Exam: Temp Pulse Resp BP Pulse Ox 98.0 F 74 24 H 127/53 L 91 08/28/18 16:00 08/28/18 16:00 08/28/18 16:00 08/28/18 16:00 08/28/18 16:00 General: In no apparent distress, Demented HEENT: Atraumatic, PERRLA, EOMI Neck: Supple, JVD not distended Respiratory: Clear to auscultation bilaterally, Normal air movement Cardiovascular: Regular rate/rhythm, Normal S1 S2 Gastrointestinal: Normal bowel sounds, No tenderness Musculoskeletal: No tenderness Integumentary: No rashes Neurological: Normal speech, Normal tone, Normal affect Lymphatics: No axilla or inguinal lymphadenopathy Laboratory Data at Discharge: WBC 11.0 K/uL (4.3-10.9) H 08/26/18 05:46 Hgb 11.2 g/dL (12.0-15.0) L 08/26/18 05:46 Hct 34.0 % (36.0-45.0) L 08/26/18 05:46 Plt Count 82 K/uL (152-406) L 08/26/18 05:46 PT 15.5 SECONDS (9.2-12.8) H 08/21/18 12:40 INR 1.33 08/21/18 12:40 APTT 23.4 SECONDS (24.3-36.9) L 08/20/18 16:09 Sodium 143 mmol/L (136-145) 08/27/18 06:53 Potassium 4.2 mmol/L (3.5-5.1) 08/27/18 06:53 BUN 12 mg/dL (7-18) 08/27/18 06:53 Creatinine 0.63 mg/dL (0.55-1.3) 08/27/18 06:53 Glucose 119 mg/dL (74-106) H 08/27/18 06:53 Magnesium 2.0 mg/dL (1.8-2.4) 08/28/18 05:39 Total Bilirubin 0.3 mg/dL (0.2-1.0) 08/20/18 16:09 AST 21 U/L (15-37) 08/20/18 16:09 ALT 20 U/L (12-78) 08/20/18 16:09 Alkaline Phosphatase 77 U/L (45-117) 08/20/18 16:09 Lipase 78 U/L (73-393) 08/20/18 16:09 Home Medications: Memantine HCl 10 mg PO BID 08/21/18 Sertraline [Zoloft*] 100 mg PO DAILY 08/21/18 hydrOXYzine HCl [Atarax] 25 mg PO Q6HP PRN 08/21/18 Ensure Enlive 237 ml PO BID can 08/27/18 Derrick [Derrick*] 1 pkt PO BID powd.pack 08/27/18 Diet: Regular Activity: Fall precautions Time spent managing pt's care (in minutes): 55
== END 2018-08-28 18:26 | DRG 871 ==
LOC: ER 15:41 → ERHOLD 18:30 → 3RD-ICU 21:49 → 2ND 08-25 17:13
PROVIDERS: ADMIT Family Medicine; ATTEND Family Medicine
PROC: 5A09557 Assistance with Respiratory Ventilation, Greater than 96 Consecutive Hours, Continuous Positive Airway Pressure (ICD-10-PCS; principal; 2018-08-20)
DX: A41.9 Sepsis, unspecified organism (principal); G92 Toxic encephalopathy; J96.21 Acute and chronic respiratory failure with hypoxia; J18.9 Pneumonia, unspecified organism; E87.0 Hyperosmolality and hypernatremia; J44.1 Chronic obstructive pulmonary disease with (acute) exacerbation; N17.9 Acute kidney failure, unspecified; N39.0 Urinary tract infection, site not specified; E44.0 Moderate protein-calorie malnutrition; R65.20 Severe sepsis without septic shock; E87.8 Other disorders of electrolyte and fluid balance, not elsewhere classified; E86.0 Dehydration; J44.9 Chronic obstructive pulmonary disease, unspecified; F41.9 Anxiety disorder, unspecified; R21 Rash and other nonspecific skin eruption; Z87.891 Personal history of nicotine dependence; N18.2 Chronic kidney disease, stage 2 (mild); G30.9 Alzheimer's disease, unspecified; F02.80 Dementia in other diseases classified elsewhere, unspecified severity, without behavioral disturbance, psychotic disturbance, mood disturbance, and anxiety; D69.6 Thrombocytopenia, unspecified; Z66 Do not resuscitate; E87.6 Hypokalemia; R47.02 Dysphasia; R62.7 Adult failure to thrive; E21.3 Hyperparathyroidism, unspecified; Z51.5 Encounter for palliative care
CPT/HCPCS: 36415; 51702; 70450; 71045; 74018; 74230; 76770; 80048; 80076; 81003; 81015; 82550; 82607; 82652; 82746; 82805; 83605; 83615; 83690; 83735; 83970; 84145; 84439; 84443; 84484; 85025; 85384; 85610; 85730; 87040; 87086; 87088; 87804; 92526; 92611; 93005; 94640; 94660; 96361; 96365; 96368; 96375; 99285; G0378; J0456; J0696; J1630; J1650; J2250; J2920; J3411; J3475; J7030; J7605